=== PATIENT | male | born 1945 | race Caucasian/White ===

== ENCOUNTER 2020-11-09 11:01 | Emergency (ER) | payer MEDICARE, SELFPAY ==
[2020-11-09 11:02] VITALS: BP 132/72; PULSE 92; RESP 14; TEMP 37.1; O2SAT 92; BMI 24.9
--- NOTE | 2020-11-09 11:20 | RAD_ITS ---
STUDY: X-RAY CHEST REASON FOR EXAM: Male, 75 years old. Cough COVID 19 TECHNIQUE: AP upright portable view. COMPARISON: None. FINDINGS: Suspicious interstitial infiltrates in the bottom half of both lungs, left more than right. Calcified granuloma in the right upper lobe. There is no demonstrated pleural abnormality. Normal size heart. Normal mediastinum and lucas. Normal visualized pulmonary arteries. Normal visualized aortic arch and descending thoracic aorta. Normal visualized thoracic spine. Normal visualized ribs, clavicles, and shoulders. There is no demonstrated abnormality of the visualized soft tissue structures of the upper abdomen. RAD/Chest 1 View (Portable) IMPRESSION: Suspicious interstitial pneumonitis in the bottom half of both lungs, left greater than right. They are worrisome for Covid 19 pneumonia. Electronically Signed: Pablo Britt MD at 12:42 EDT , Service support ,
--- NOTE | 2020-11-09 11:21 | EX.ED.DYSGE1 ---
HPI History of Present Illness Chief Complaint: Fever Informant: patient Narrative Narrative: 75-year-old male presents to the emergency department with COVID-19. He states that he was first diagnosed last Tuesday at outside hospital. He believes he may have had symptoms the day before he sought evaluation. He states that all week he has had fever sweats and weakness. He states his breathing is not really been affected by this. He states that he is making very little urine. He states that he has been too weak to eat or drink much. PFSH PFSH Medical History (Updated 11/09/20 @ 11:43 by Shazia Soto) COVID-19 High cholesterol Home Medications atorvastatin 10 mg PO DAILY 11/09/20 [History Last Taken Unknown] azithromycin 250 mg PO DAILY 11/09/20 [History Last Taken Unknown] dexamethasone 6 mg PO DAILY 11/09/20 [History Last Taken Unknown] finasteride 5 mg PO DAILY 11/09/20 [History Last Taken Unknown] lubiprostone 24 mcg PO DAILY 11/09/20 [History Last Taken Unknown] Allergy/AdvReac Type Severity Reaction Status Date / Time Fish Containing Products Allergy PT UNSURE Verified 11/09/20 11:46 OF REACTION fish oil Allergy PT UNSURE Verified 11/09/20 11:46 OF REACTION licorice Allergy PT UNSURE Verified 11/09/20 11:46 OF REACTION peanut Allergy PT UNSURE Verified 11/09/20 11:46 OF REACTION peppermint Allergy PT UNSURE Verified 11/09/20 11:46 OF REACTION strawberry Allergy PT UNSURE Verified 11/09/20 11:46 OF REACTION tetanus and diphtheria Allergy PT UNSURE Verified 11/09/20 11:46 toxoids OF REACTION walnut Allergy PT UNSURE Verified 11/09/20 11:46 OF REACTION wheat Allergy PT UNSURE Verified 11/09/20 11:46 OF REACTION bee stings Allergy PT UNSURE Uncoded 11/09/20 11:46 OF REACTION NUTS Allergy PT UNSURE Uncoded 11/09/20 11:02 OF REACTION Social History (Updated 11/09/20 @ 11:[address] Harshad Saldana DO) household members: spouse Smoking Status: Former smoker ROS ROS ED Constitutional Constitutional ED: Reports fever(s), sweats and other Details: Fatigue ; Denies chills or weight loss Eyes Eyes: Denies change in vision or diplopia ENT ENT ED: Reports sore throat; Denies ear pain or rhinorrhea Cardiovascular Cardiovascular: Denies chest pain, orthopnea, palpitations or racing heartbeat Respiratory/Chest Respiratory/Chest: Reports cough; Denies dyspnea or orthopnea Gastrointestinal Gastrointestinal: Reports nausea; Denies abdominal pain, diarrhea or vomiting Genitourinary Genitourinary ED: Denies dysuria, hematuria or urinary frequency Musculoskeletal Musculoskeletal: Denies arthralgias or myalgias Integumentary Denies abscess or rash Neurologic Neurologic: Reports headache(s); Denies weakness Psychiatric Psychiatric: Denies anxiety, depression, suicidal ideation or suicidal thoughts Endocrine Endocrinology: Denies polydipsia, polyphagia or polyuria Allergic/Immunologic Allergic/Immunologic ED: Denies mouth swelling, tongue swelling or urticaria EXAM Physical Exam Const Vital Signs: 11/09/20 11:02 11/09/20 11:04 Temperature 98.8 F Temperature Source Oral Pulse Rate 92 Respiratory Rate 14 Respiratory Effort Normal Non-Labored Blood Pressure 132/72 H Blood Pressure Mean 92 Pulse Ox 92 Oxygen Delivery Method Room Air Positive well nourished and well developed General Appearance ED: well developed HEENT Reports normocephalic, head/scalp atraumatic and dry mucous membranes Mouth ED: Yes dry mucous membranes Mouth: dry mucous membranes Eyes PERRL and EOMs intact bilaterally Neck no lymphadenopathy, supple and no JVD Resp normal respiratory effort and clear to auscultation bilaterally Cardio regular rate, regular rhythm and no murmurs GI normal to inspection, nondistended, normoactive bowel sounds and non-tender Palpation: soft Back/Spine no CVA tenderness and normal ROM Extremity normal to inspection General Extremety ED: Negative for edema General Extremity: Negative for edema Neuro oriented x3 and CN's II-XII intact bilaterally Sensorium / Orientation: alert Motor Exam: strength 5/5 throughout Psych mental status grossly normal Mood & Affect: Negative for depressed or tearful Skin no rashes or lesions noted and no wounds MDM MDM MDM Narrative Medical decision making narrative: My interpretation of the plain film of the chest x-ray is multifocal pneumonitis/pneumonia consistent with COVID-19. Patient received 2 L of IV fluids. Creatinine noted to be slightly elevated at 1.91. He has been able to eat and drink and eat a little. At this point his vital signs are stable. Patient should be approaching day 10 of his illness. He will be discharged home return if worsening or concerns Lab Data Labs: Laboratory Results - last 24 hr 11/09/20 11/09/20 11:40 11:40 WBC 8.9 RBC 5.46 Hgb 15.4 Hct 47.8 MCV 87.5 MCH 28.2 MCHC 32.2 RDW Std Deviation 41.6 RDW Coeff of Devyn 12.9 Plt Count 180 MPV 10.9 Immature Gran % (Auto) 0.700 Neut % (Auto) 87.0 H Lymph % (Auto) 5.9 L [place] % (Auto) 6.2 Eos % (Auto) 0.1 Baso % (Auto) 0.1 Absolute Neuts (auto) 7.8 H Absolute Lymphs (auto) 0.53 L Nucleated RBC % 0 Sodium 136 Potassium 3.9 Chloride 103 Carbon Dioxide 24.0 Anion Gap 9 BUN 27 H Creatinine 1.91 H Estim Creat Clear Calc 38.93 Est GFR (MDRD) Af Amer 45 L Est GFR (MDRD) Non-Af 37 L BUN/Creatinine Ratio 14.1 Glucose 126 H Calcium 8.4 L Total Bilirubin 0.40 AST 65 H ALT 71 H Alkaline Phosphatase 73 Total Protein 7.7 Albumin 3.4 Globulin 4.3 H Albumin/Globulin Ratio 0.8 L Lipase 155 Radiography Diagnostic Testing: Radiology Impression Chest X-Ray 11/09/20 11:20 IMPRESSION: Suspicious interstitial pneumonitis in the bottom half of both lungs, left greater than right. They are worrisome for Covid 19 pneumonia. Electronically Signed: Pablo Britt MD at 12:42 EDT , Service support , Discharge Plan Triage Chief Complaint: Fever ED Provider: Harshad Saldana Dx/Rx/DC Orders Instructions: Coronavirus Disease 2019 (COVID-19): Caring for Yourself or Others, ED Dehydration (Adult) Prescriptions: No Action atorvastatin 10 mg Tablet 10 mg PO DAILY RF: 0 azithromycin 250 mg tablet 250 mg PO DAILY RF: 0 dexamethasone 6 mg tablet 6 mg PO DAILY RF: 0 finasteride 5 mg tablet 5 mg PO DAILY RF: 0 lubiprostone 24 mcg Capsule 24 mcg PO DAILY RF: 0 Primary Care Provider: Care Physician,No Primary Referrals: Care Physician,No Primary [Primary Care Provider] - Activity Restrictions/Additional Instructions: I have placed a referral to pulmonary medicine and they may be able to offer you monoclonal antibody infusion. You will most likely receive a phone call from them Disposition Disposition: Home, self care
[2020-11-09] MEDS: 0.9% Normal Saline 1,000 ML 1000 ML IV ×2 (11:28→12:00)
[2020-11-09 11:47] LABS: Absolute Lymphocyte Count 0.53 X10^3/uL (0.83-4.51); Absolute Neutrophil Count 7.8 X10^3/uL (2.0-7.7); Basophil# 0.01 X10^3/uL; Basophil% 0.1 % (0-1); Eosinophil# 0.01 X10^3/uL; Eosinophils% 0.1 % (0-5); Hematocrit 47.8 % (40-54); Hemoglobin 15.4 g/dL (13.0-16.5); Lymphocyte # 0.53 X10^3/ul (0.83-4.51); Lymphocyte % 5.9 % (19-41); Mean Corp Hgb Conc 32.2 g/dL (32-36); Mean Corpuscular Hgb 28.2 pg (27.0-32.0); Mean Corpuscular Volume 87.5 fL (80-94); Mean Platelet Vol. 10.9 fl (6.2-12.0); Monocyte# 0.55 X10^3/uL; Monocyte% 6.2 % (0-10); NRBC Flagged by Analyzer 0 % (0-5); Neutrophil # 7.78 X10^3/uL (2.7-7.7); POSITIVE DIFFERENTIAL YES; Platelet Count 180 K/mm3 (150-450); RBC Distribution Width CV 12.9 % (11.6-14.6); RBC Distribution Width SD 41.6 fl (35.1-43.9); Red Blood Count 5.46 M/mm3 (4.6-6.2); White Blood Count 8.9 K/mm3 (4.4-11.0)
[2020-11-09 11:48] LABS: Differential Indicated SCAN CRITERIA MET
[2020-11-09 12:05] LABS: ALB/GLOB Ratio 0.8 RATIO (0.9-2.4); AST(SGOT) 65 U/L (15-37); Alanine Aminotransfer ALT/SGPT 71 U/L (16-61); Albumin, Serum 3.4 g/dL (3.2-5.0); Alkaline Phosphatase 73 U/L (45-117); Anion Gap 9 (5-15); BUN 27 mg/dL (7-18); BUN/Creat Ratio 14.1 RATIO (10-20); Calcium,Total 8.4 mg/dL (8.5-10.1); Chloride 103 mmol/L (98-107); Creatinine, Serum 1.91 mg/dL (0.70-1.30); EST Glomerular Filtration Rate 37 mL/min (>60); Est Glom Filt Rate - Afr Amer 45 mL/min (>60); Estimated Creatinine Clearance 38.93 ml/min; Globulin 4.3 g/dL (2.2-4.2); Glucose 126 mg/dL (74-106); Lipase 155 U/L (73-393); Potassium 3.9 mmol/L (3.5-5.1); Protein, Total 7.7 g/dL (6.4-8.2); Sodium Level 136 mmol/L (136-145)
[2020-11-09 14:01] VITALS: BP 150/77; PULSE 90; RESP 20; TEMP 36.6; O2SAT 96
[2020-11-09 14:04] VITALS: RESP 16
[2020-11-10 13:18] LABS: Pathologist Review Reviewed
== END 2020-11-09 14:05 | disposition home or self-care (01) ==
PROVIDERS: Emergency Provider Emergency Medicine; PCP Internal Medicine
DX: R50.9 Fever, unspecified (principal); E78.00 Pure hypercholesterolemia, unspecified; U07.1 COVID-19; Z79.52 Long term (current) use of systemic steroids; Z87.891 Personal history of nicotine dependence; Z79.899 Other long term (current) drug therapy
CPT/HCPCS: 71045; 80053; 83690; 85025; 99284; J7030; A4216

== ENCOUNTER 2020-11-11 10:50 | Inpatient (IN) | payer MEDICARE, SELFPAY ==
[2020-11-11] VITALS (7 sets, daily range): BP systolic 133–162; BP diastolic 68–86; PULSE 59–81; RESP 17–24; TEMP 36.4–37.4; O2SAT 80–97; BMI 900.8; BMI 24.3
--- NOTE | 2020-11-11 11:04 | EKG12_ITS ---
Test Reason : SOB Blood Pressure : / mmHG Vent. Rate : 073 BPM Atrial Rate : 073 BPM P-R Int : 144 ms QRS Dur : 124 ms QT Int : 390 ms P-R-T Axes : 072 -47 037 degrees QTc Int : 429 ms Normal sinus rhythm Right bundle branch block Left anterior fascicular block Bifascicular block Abnormal ECG Confirmed by LACEY CANALES, LUCIE ([id number]), photographic editor ANURADHA LESTER ([id number]) on 11/13/2020 11:18:51 AM Referred By: /IZABEL Confirmed By:LUCIE RAHMAN MD
--- NOTE | 2020-11-11 11:11 | EDS_ITS ---
HPI History of Present Illness Chief Complaint: Shortness of Breath Narrative Narrative: Patient presenting for evaluation due to complications of coronavirus. Patient's states that he tested positive on the , and had symptoms maybe a couple of days before that although we have documentation that he potentially had symptoms since the seventh of this month. Patient apparently had been seen in an outside facility in this facility for these complications, had work-ups had fluids given and was discharged with continued supportive care. Now he is presenting with increasing issues with tolerating p.o., nausea vomiting, mild diarrhea, and increasing shortness of breath especially with any sort of light exertion. Patient denies that he has any chest pain. No history of lung disease, he is a reformed smoker around 40 years ago. Has been coughing up any blood. Patient was noted to have a pulse ox of 80% in triage. [facility] Medical History (Updated 11/11/20 @ 13:[address] Cristopher Shearer MD) Cancer COVID-19 High cholesterol Home Medications finasteride 5 mg PO DAILY 11/09/20 [History Last Taken Unknown] Allergy/AdvReac Type Severity Reaction Status Date / Time Fish Containing Products Allergy PT UNSURE Verified 11/11/20 10:55 OF REACTION fish oil Allergy PT UNSURE Verified 11/11/20 10:55 OF REACTION licorice Allergy PT UNSURE Verified 11/11/20 10:55 OF REACTION peanut Allergy PT UNSURE Verified 11/11/20 10:55 OF REACTION peppermint Allergy PT UNSURE Verified 11/11/20 10:55 OF REACTION strawberry Allergy PT UNSURE Verified 11/11/20 10:55 OF REACTION tetanus and diphtheria Allergy PT UNSURE Verified 11/11/20 10:55 toxoids OF REACTION walnut Allergy PT UNSURE Verified 11/11/20 10:55 OF REACTION wheat Allergy PT UNSURE Verified 11/11/20 10:55 OF REACTION bee stings Allergy PT UNSURE Uncoded 11/11/20 10:55 OF REACTION NUTS Allergy PT UNSURE Uncoded 11/11/20 10:55 OF REACTION Social History household members: spouse Smoking Status: Former smoker ROS ROS ED Constitutional Constitutional ED: Reports chills and fever(s) ENT ENT ED: Denies rhinorrhea Cardiovascular Cardiovascular: Denies chest pain Respiratory/Chest Respiratory/Chest: Reports cough and dyspnea Gastrointestinal Gastrointestinal: Reports diarrhea, nausea and vomiting; Denies abdominal pain Genitourinary Genitourinary ED: Denies dysuria or hematuria Musculoskeletal Musculoskeletal: Denies back pain Integumentary Denies rash Neurologic Neurologic: Denies paresthesias or weakness Psychiatric Psychiatric: Denies depression Endocrine Endocrinology: Denies fatigue Allergic/Immunologic Allergic/Immunologic ED: Denies urticaria EXAM Physical Exam Const Vital Signs: 11/11/20 10:51 11/11/20 10:55 11/11/20 11:47 Temperature 99.3 F H Temperature Source Temporal Pulse Rate 81 74 Respiratory Rate 17 18 Respiratory Effort Respiratory Depth Respiratory Pattern Blood Pressure 156/86 H 146/77 H Blood Pressure Mean 109 100 Pulse Ox 80 92 92 Oxygen Delivery Method Room Air Nasal Cannula Venturi Mask Oxygen Flow Rate (L/min) 6 4 11/11/20 11:49 Temperature Temperature Source Pulse Rate Respiratory Rate Respiratory Effort Short of Breath Respiratory Depth Normal Respiratory Pattern Normal Blood Pressure Blood Pressure Mean Pulse Ox Oxygen Delivery Method Oxygen Flow Rate (L/min) Positive well nourished and well developed Constitutional Narrative: Minimally dyspneic but otherwise not in physiologic distress General Appearance ED: well developed and other HEENT Reports dry mucous membranes atraumatic Mouth ED: Yes dry mucous membranes Mouth: dry mucous membranes Eyes PERRL and EOMs intact bilaterally Neck no lymphadenopathy and supple Resp Resp Narrative: Mildly tachypneic with rales noted in the bases bilaterally Cardio regular rate and regular rhythm Cardio Narrative: 2+ radial pulses bilaterally symmetric GI non-tender and non-distended Palpation: soft Back/Spine normal to inspection Extremity normal to inspection General Extremety ED: Negative for tenderness Neuro oriented x3 and no sensory deficits noted Sensorium / Orientation: alert Motor Exam: strength 5/5 throughout Psych mental status grossly normal Skin Lesions: no lesions Rashes: no rashes MDM MDM MDM Narrative Medical decision making narrative: Patient presented secondary to worsening symptoms from coronavirus. He required supplemental oxygen. IV was established laboratory studies were obtained. Patient has the typical lymphocyte suppression on his CBC, chemistry shows a chronically elevated creatinine at 1.7 not far off of the patient's baseline no significant electrolyte derangements no evidence of anion gap or acidosis. Patient did have an elevated D-dimer likely secondary to his infection he does not have any chest pain or hemoptysis, his creatinine is higher than I would be comfortable with performing a CT angio initially, so this will be deferred until he is an inpatient. Patient requires admission at this time. Will be admitted under the hospitalist. Lab Data Labs: Laboratory Results - last 24 hr 11/11/20 11/11/20 11/11/20 11:15 11:15 11:15 WBC 8.8 RBC 5.14 Hgb 14.5 Hct 45.8 MCV 89.1 MCH 28.2 MCHC 31.7 L RDW Std Deviation 42.5 RDW Coeff of Devyn 13.0 Plt Count 221 MPV 10.5 Immature Gran % (Auto) 1.600 H Neut % (Auto) 79.0 H Lymph % (Auto) 8.7 L [place] % (Auto) 10.5 H Eos % (Auto) 0.0 Baso % (Auto) 0.2 Absolute Neuts (auto) 6.9 Absolute Lymphs (auto) 0.76 L Nucleated RBC % 0 D-Dimer Quant (PE/DVT) 1.17 H* Sodium 137 Potassium 4.0 Chloride 102 Carbon Dioxide 27.0 Anion Gap 8 BUN 26 H Creatinine 1.75 H Estim Creat Clear Calc 44.51 Est GFR (MDRD) Af Amer 49 L Est GFR (MDRD) Non-Af 41 L BUN/Creatinine Ratio 14.9 Glucose 117 H Lactic Acid Calcium 8.4 L Magnesium 2.2 Total Bilirubin 0.50 AST 49 H ALT 57 Alkaline Phosphatase 70 Total Protein 7.4 Albumin 3.0 L Globulin 4.4 H Albumin/Globulin Ratio 0.7 L Procalcitonin 11/11/20 11/11/20 11:15 11:15 WBC RBC Hgb Hct MCV MCH MCHC RDW Std Deviation RDW Coeff of Devyn Plt Count MPV Immature Gran % (Auto) Neut % (Auto) Lymph % (Auto) [place] % (Auto) Eos % (Auto) Baso % (Auto) Absolute Neuts (auto) Absolute Lymphs (auto) Nucleated RBC % D-Dimer Quant (PE/DVT) Sodium Potassium Chloride Carbon Dioxide Anion Gap BUN Creatinine Estim Creat Clear Calc Est GFR (MDRD) Af Amer Est GFR (MDRD) Non-Af BUN/Creatinine Ratio Glucose Lactic Acid 1.6 Calcium Magnesium Total Bilirubin AST ALT Alkaline Phosphatase Total Protein Albumin Globulin Albumin/Globulin Ratio Procalcitonin 0.81 H Radiography Chest X-Ray - ED: 1 View, Right Infiltrate and Left Infiltrate Diagnostic Testing: Radiology Impression Chest X-Ray 11/11/20 11:55 IMPRESSION: Persistent bilateral pulmonary infiltrates as described. Stable on the right. Improved aeration of the left perihilar infiltrate. Electronically Signed: Jaciel Alonzo MD at 12:13 EDT , Service support , EKG Initial EKG: Attestation: I personally reviewed and interpreted this EKG as follows: (Sinus rhythm of 75, right bundle branch block with left anterior fascicular block are noted. This is somewhat changed from prior EKG that was in 2017. Normal intervals, no evidence of ST segment deviations or abnormal T waves.) Discharge Plan Triage Chief Complaint: Shortness of Breath ED Provider: Cristopher Shearer Dx/Rx/DC Orders Clinical Impression: COVID-19, Hypoxia, D-dimer, elevated, Chronic kidney disease Primary Care Provider: Adriana Boo Disposition Disposition: Acute Care Hospital [facility]
[2020-11-11] MEDS: Acetaminophen 500 MG Tablet 1000 MG PO (11:33)
[2020-11-11] MEDS: Ondansetron 4 MG/2 ML Vial IV ×2 (11:36→21:20)
[2020-11-11 11:49] LABS: Absolute Lymphocyte Count 0.76 X10^3/uL (0.83-4.51); Absolute Neutrophil Count 6.9 X10^3/uL (2.0-7.7); Basophil# 0.02 X10^3/uL; Basophil% 0.2 % (0-1); Hematocrit 45.8 % (40-54); Hemoglobin 14.5 g/dL (13.0-16.5); Lymphocyte # 0.76 X10^3/ul (0.83-4.51); Lymphocyte % 8.7 % (19-41); Mean Corp Hgb Conc 31.7 g/dL (32-36); Mean Corpuscular Hgb 28.2 pg (27.0-32.0); Mean Corpuscular Volume 89.1 fL (80-94); Mean Platelet Vol. 10.5 fl (6.2-12.0); Monocyte# 0.92 X10^3/uL; Monocyte% 10.5 % (0-10); NRBC Flagged by Analyzer 0 % (0-5); Neutrophil # 6.93 X10^3/uL (2.7-7.7); Platelet Count 221 K/mm3 (150-450); RBC Distribution Width SD 42.5 fl (35.1-43.9); Red Blood Count 5.14 M/mm3 (4.6-6.2); White Blood Count 8.8 K/mm3 (4.4-11.0)
[2020-11-11 11:52] LABS: D-Dimer Quantitative (DVT/PE) 1.17 FEU/ug/m (0.27-0.49)
[2020-11-11 11:55] LABS: ALB/GLOB Ratio 0.7 RATIO (0.9-2.4); AST(SGOT) 49 U/L (15-37); Alanine Aminotransfer ALT/SGPT 57 U/L (16-61); Alkaline Phosphatase 70 U/L (45-117); Anion Gap 8 (5-15); BUN 26 mg/dL (7-18); BUN/Creat Ratio 14.9 RATIO (10-20); Calcium,Total 8.4 mg/dL (8.5-10.1); Chloride 102 mmol/L (98-107); Creatinine, Serum 1.75 mg/dL (0.70-1.30); EST Glomerular Filtration Rate 41 mL/min (>60); Est Glom Filt Rate - Afr Amer 49 mL/min (>60); Estimated Creatinine Clearance 44.51 ml/min; Globulin 4.4 g/dL (2.2-4.2); Glucose 117 mg/dL (74-106); Magnesium 2.2 mg/dL (1.6-2.6); Protein, Total 7.4 g/dL (6.4-8.2); Sodium Level 137 mmol/L (136-145)
--- NOTE | 2020-11-11 11:55 | RAD_ITS ---
STUDY: X-RAY CHEST REASON FOR EXAM: Male, 75 years old. Cough TECHNIQUE: Single AP portable view of the chest. COMPARISON: Comparison is made with prior study dated 11/09/2020. FINDINGS: EKG electrodes are seen. Stable right perihilar infiltrate as well as stable right lower lobe infiltrate. Slight improvement in the left perihilar infiltrate. There is no demonstrated pleural abnormality. Normal size heart. Normal mediastinum and lucas. Normal visualized pulmonary arteries. There is atherosclerotic tortuosity of the aortic arch and descending thoracic aorta. Normal visualized thoracic spine. Normal visualized ribs, clavicles, and shoulders. There is no demonstrated abnormality of the visualized soft tissue structures of the upper abdomen. RAD/Chest 1 View (Portable) IMPRESSION: Persistent bilateral pulmonary infiltrates as described. Stable on the right. Improved aeration of the left perihilar infiltrate. Electronically Signed: Jaciel Alonzo MD at 12:13 EDT , Service support ,
[2020-11-11 12:04] LABS: Lactic Acid 1.6 mmol/L (0.4-1.9)
[2020-11-11 12:27] LABS: Procalcitonin 0.81 ng/mL (0.00-0.09)
--- NOTE | 2020-11-11 13:23 | HP.PCM.HOS_ITS ---
HPI - General General Date of Admission: 11/11/20 HPI Narrative TERESA DOWNEY, is a 75 M who presents with shortness of breath. Tested positive for COVID -19 on the 05 of November. Approximately 2 weeks ago he developed diarrhea, nausea, vomiting and has been unable to tolerate PO. He tested for COVID-19 at OSH and had a hospital. He presented to [facility] ED on the with fever and was referred to pulmonary for monoclonal antibody infusion. Since then he has been more short of breath. In ED today was 80% on room air. He is still complaining of vomiting and diarrhea. He received IVF in ED. His also has COVID-19 and is with him in the ED. She denies any complaints. Neither of them have received the COVID-19 vaccination citing that it has not been thoroughly tested enough. [facility] Medical History Cancer COVID-19 High cholesterol Home Medications finasteride 5 mg PO DAILY 11/09/20 [History Last Taken Unknown] Allergy/AdvReac Type Severity Reaction Status Date / Time Fish Containing Products Allergy PT UNSURE Verified 11/11/20 10:55 OF REACTION fish oil Allergy PT UNSURE Verified 11/11/20 10:55 OF REACTION licorice Allergy PT UNSURE Verified 11/11/20 10:55 OF REACTION peanut Allergy PT UNSURE Verified 11/11/20 10:55 OF REACTION peppermint Allergy PT UNSURE Verified 11/11/20 10:55 OF REACTION strawberry Allergy PT UNSURE Verified 11/11/20 10:55 OF REACTION tetanus and diphtheria Allergy PT UNSURE Verified 11/11/20 10:55 toxoids OF REACTION walnut Allergy PT UNSURE Verified 11/11/20 10:55 OF REACTION wheat Allergy PT UNSURE Verified 11/11/20 10:55 OF REACTION bee stings Allergy PT UNSURE Uncoded 11/11/20 10:55 OF REACTION NUTS Allergy PT UNSURE Uncoded 11/11/20 10:55 OF REACTION Social History household members: spouse Smoking Status: Former smoker ROS ROS Narrative All review of systems were negative except as mentioned above in the history of present illness and the other review of systems. Constitutional Constitutional: Reports anorexia, chills and fever(s) Cardiovascular Cardiovascular: Denies chest pain Respiratory/Chest Respiratory/Chest: Reports cough and shortness of breath with exertion Gastrointestinal Gastrointestinal: Reports abdominal pain, diarrhea, nausea and vomiting Vital Signs Vital Signs Vital Signs: 11/11/20 10:51 11/11/20 10:55 11/11/20 11:47 Temperature 37.4 C H Temperature Source Temporal Pulse Rate 81 74 Respiratory Rate 17 18 Respiratory Effort Respiratory Depth Respiratory Pattern Blood Pressure 156/86 H 146/77 H Blood Pressure Mean 109 100 Pulse Ox 80 92 92 Oxygen Delivery Method Room Air Nasal Cannula Venturi Mask Oxygen Flow Rate (L/min) 6 4 11/11/20 11:49 Temperature Temperature Source Pulse Rate Respiratory Rate Respiratory Effort Short of Breath Respiratory Depth Normal Respiratory Pattern Normal Blood Pressure Blood Pressure Mean Pulse Ox Oxygen Delivery Method Oxygen Flow Rate (L/min) Weight Weight: 83.7 kg Body Mass Index (BMI) 900.8 Physical Exam Const alert Constitutional Narrative: Listless. General Appearance: cooperative HEENT normocephalic HEENT Narrative: Edentulous. Mucous membranes moist Eyes Eyes Narrative: No scleral icterus Neck no lymphadenopathy Resp normal respiratory effort Resp Narrative: Bibasilar crackles. Cardio regular rate, regular rhythm, S1 normal heart sound and S2 normal heart sound GI normal to inspection, nondistended, normoactive bowel sounds Neuro Sensorium / Orientation: awake and alert Lab / Micro Data Result Diagrams: 11/11/20 11:15 11/11/20 11:15 Labs: Laboratory Results - last 24 hr 11/11/20 11/11/20 11/11/20 11:15 11:15 11:15 WBC 8.8 RBC 5.14 Hgb 14.5 Hct 45.8 MCV 89.1 MCH 28.2 MCHC 31.7 L RDW Std Deviation 42.5 RDW Coeff of Devyn 13.0 Plt Count 221 MPV 10.5 Immature Gran % (Auto) 1.600 H Neut % (Auto) 79.0 H Lymph % (Auto) 8.7 L [place] % (Auto) 10.5 H Eos % (Auto) 0.0 Baso % (Auto) 0.2 Absolute Neuts (auto) 6.9 Absolute Lymphs (auto) 0.76 L Nucleated RBC % 0 D-Dimer Quant (PE/DVT) 1.17 H* Sodium 137 Potassium 4.0 Chloride 102 Carbon Dioxide 27.0 Anion Gap 8 BUN 26 H Creatinine 1.75 H Estim Creat Clear Calc 44.51 Est GFR (MDRD) Af Amer 49 L Est GFR (MDRD) Non-Af 41 L BUN/Creatinine Ratio 14.9 Glucose 117 H Lactic Acid Calcium 8.4 L Magnesium 2.2 Total Bilirubin 0.50 AST 49 H ALT 57 Alkaline Phosphatase 70 Total Protein 7.4 Albumin 3.0 L Globulin 4.4 H Albumin/Globulin Ratio 0.7 L Procalcitonin 11/11/20 11/11/20 11:15 11:15 WBC RBC Hgb Hct MCV MCH MCHC RDW Std Deviation RDW Coeff of Devyn Plt Count MPV Immature Gran % (Auto) Neut % (Auto) Lymph % (Auto) [place] % (Auto) Eos % (Auto) Baso % (Auto) Absolute Neuts (auto) Absolute Lymphs (auto) Nucleated RBC % D-Dimer Quant (PE/DVT) Sodium Potassium Chloride Carbon Dioxide Anion Gap BUN Creatinine Estim Creat Clear Calc Est GFR (MDRD) Af Amer Est GFR (MDRD) Non-Af BUN/Creatinine Ratio Glucose Lactic Acid 1.6 Calcium Magnesium Total Bilirubin AST ALT Alkaline Phosphatase Total Protein Albumin Globulin Albumin/Globulin Ratio Procalcitonin 0.81 H Radiology Impression Chest X-Ray 11/11/20 11:55 IMPRESSION: Persistent bilateral pulmonary infiltrates as described. Stable on the right. Improved aeration of the left perihilar infiltrate. Electronically Signed: Jaciel Alonzo MD at 12:13 EDT , Service support , Assessment & Plan Assessment/Plan (1) COVID-19: (2) Hypoxia: (3) D-dimer, elevated: (4) Chronic kidney disease: QUALIFIERS: Chronic kidney disease stage: stage 3 (moderate) Chronic kidney disease stage 3 subtype: stage 3b (GFR 30-44) Qualified Code(s): N18.32 - Chronic kidney disease, stage 3b PLAN: 1. Acute COVID-19 pneumonia * Start the patient on dexamethasone 6mg for a total of 10 days. Patient has an elevated D-dimer but given his CKD 3, would not have the patient undergo a CT angiogram at this time. VQ scan would be of low yield. So in the meantime, patient will be anticoagulated with enoxaparin. * Patient unsure if his symptoms began a week ago or 2 weeks ago. Will consult infectious disease for further recommendations and whether remdesivir would be an option for him. * Strongly recommended to he and his to get the vaccine once they are done with quarantine. They initially stated that they were apprehensive because it had not been studied enough in towards the end of the encounter the is asking if he can get the vaccination during this hospitalization. I told him that, at this time, we do not have that capability but that could be done as outpatient in the community. 2. Acute hypoxic respiratory failure * Secondary to above but cannot rule out VTE at this time. * Wean oxygen as tolerated 3. CKD 3B * Complicates care. Avoid nephrotoxins. * Will give 500 cc of fluid. 4. Intractable nausea and vomiting and diarrhea * Start PPI. As needed ondansetron * May be related with COVID-19 * Check C. difficile 5. VTE prophylaxis: Not indicated as patient is currently anticoagulated. 6. CODE STATUS: Discussed with the patient. Patient is full CODE STATUS at this time. Visit Charges Inpatient E&M: 10475 Init Hosp L3
[2020-11-11] MEDS: 0.9% Normal Saline 1,000 ML 150 ML IV (14:17)
[2020-11-11] MEDS: Pantoprazole Sodium 40 MG Tablet PO (14:20)
[2020-11-11] MEDS: dexAMETHasone 4 MG Tablet 6 MG PO (14:20)
[2020-11-11] MEDS: Enoxaparin 80 MG/0.8 ML Syringe SC (21:17)
[2020-11-11] MEDS: 0.9% Saline Lock 10 ML Syringe IV (21:20)
--- NOTE | 2020-11-11 23:00 | NURSING ---
Pt visualized in room camera, at bedside using urinal;sits and begins to have a coughing fit. P.ox. noted to be dropping to low 80s and then to 78%. Pt placed on VM and progressed from lower flow, up to 40%VM and 8L before pulse ox rises above 90%. Pt denies sx of hypoxia besides how this virus has me feeling already.
[2020-11-12 01:30] VITALS: BP 150/86; PULSE 73; RESP 20; TEMP 36.6; O2SAT 95
[2020-11-12 06:19] LABS: Absolute Neutrophil Count 11.6 X10^3/uL (2.0-7.7); Basophil# 0.02 X10^3/uL; Basophil% 0.2 % (0-1); Hematocrit 41.6 % (40-54); Hemoglobin 13.3 g/dL (13.0-16.5); Lymphocyte % 3.8 % (19-41); Mean Corpuscular Hgb 28.4 pg (27.0-32.0); Mean Corpuscular Volume 88.9 fL (80-94); Mean Platelet Vol. 10.1 fl (6.2-12.0); Monocyte# 1.01 X10^3/uL; Monocyte% 7.6 % (0-10); NRBC Flagged by Analyzer 0 % (0-5); Neutrophil # 11.55 X10^3/uL (2.7-7.7); Neutrophil % 87.4 % (47-70); POSITIVE DIFFERENTIAL YES; Platelet Count 220 K/mm3 (150-450); RBC Distribution Width CV 13.1 % (11.6-14.6); RBC Distribution Width SD 42.6 fl (35.1-43.9); Red Blood Count 4.68 M/mm3 (4.6-6.2); White Blood Count 13.2 K/mm3 (4.4-11.0)
[2020-11-12 06:21] LABS: Differential Indicated SCAN CRITERIA MET
[2020-11-12 06:32] LABS: Anion Gap 8 (5-15); BUN 27 mg/dL (7-18); BUN/Creat Ratio 18.5 RATIO (10-20); Calcium,Total 7.9 mg/dL (8.5-10.1); Chloride 105 mmol/L (98-107); Creatinine, Serum 1.46 mg/dL (0.70-1.30); EST Glomerular Filtration Rate 50 mL/min (>60); Est Glom Filt Rate - Afr Amer 61 mL/min (>60); Estimated Creatinine Clearance 50.93 ml/min; Glucose 125 mg/dL (74-106); Magnesium 2.1 mg/dL (1.6-2.6); Phosphorus 2.9 mg/dL (2.5-4.9); Potassium 4.4 mmol/L (3.5-5.1); Sodium Level 138 mmol/L (136-145)
[2020-11-12 06:42] LABS: Differential Comment SCANNED
[2020-11-12 06:52] VITALS: O2SAT 90
--- NOTE | 2020-11-12 07:07 | EX.PCM.CONCC ---
Assessment & Plan Assessment/Plan (1) COVID-19: (2) Hypoxia: (3) Chronic kidney disease: QUALIFIERS: Chronic kidney disease stage: stage 3 (moderate) Chronic kidney disease stage 3 subtype: stage 3b (GFR 30-44) Qualified Code(s): N18.32 - Chronic kidney disease, stage 3b PLAN: RECOMMENDATIONS: 1. Continue Decadron. Not a candidate for remdesivir given delayed presentation 2. Hold on aggressive fluid resuscitation. KVO IV fluids. 3. Possible transition to Airvo versus BiPAP later today 4. Encourage incentive spirometer 5. Agree with empiric anticoagulation IMPRESSIONS: 1. Acute hypoxic respiratory insufficiency secondary to COVID-19 pneumonia Patient with bilateral infiltrates on chest x-ray. Unclear if patient has an element of COPD given previous smoking history. Patient appears to be on approximately day 14 of symptoms, so remdesivir would not be indicated. Agree with Decadron. Patient is open to intubation, but is not thrilled with BiPAP. Patient may be at peak symptoms, but if patient continues to worsen, transition to BiPAP versus Airvo may be necessary. We will need to monitor for complications of Decadron therapy. 2. CKD stage IIIb Patient's creatinine appears to be at baseline. We will continue to monitor closely. Would avoid aggressive fluid resuscitation as this will likely not affect his renal function, but could increase his risk of requiring mechanical ventilation. 3. Intractable nausea, vomiting and diarrhea Clinical suspicion that this is secondary to COVID-19. C. difficile has been negative. PPI is reasonable, especially given patient's Decadron requirements. 4. Advanced age/avoidance of primary care/history of smoker/BPH Complicates care, management, recovery and prognosis. We will discuss about discharge planning and the importance of primary care follow-up and COVID-19 vaccination. HPI Consult Data Date of Consult: 11/12/20 HPI Narrative HPI Narrative: TERESA DOWNEY is a 75-year-old male, with past medical history listed below, who presented to [facility] on 11/11/2020 secondary to progressive weakness, fever, chills and headache. Patient had also noted that he been making very little urine, but states that he has been too weak to eat or drink since he was diagnosed with COVID-19 approximately 10 days prior to presentation. Patient estimates that he has had signs of an acute illness for almost 2 weeks. Initially on presentation to the ER on 11/09/2020, patient was afebrile at 98.8 ?F and saturating well at 92% on room air. Laboratory data was relatively unremarkable except for an elevated creatinine of 1.9, BUN of 27 and slightly elevated AST and ALT. Lipase and CBC were within normal limits. Patient was given 2 L of IV fluids and sent home. Patient presented back to the emergency room on 11/11/2020 secondary to progressive shortness of breath and inability to tolerate p.o. Patient reportedly was a smoker in the past, but quit sometime ago. Patient has never seen a dice table person, but was noted to be saturating 80% in triage on room air. Patient was noted to be 99.3 ?F, normotensive, but required 6 L nasal cannula to maintain saturations. Laboratory data showed no significant leukocytosis, but elevated D-dimer at 1.17, creatinine of 1.75 and slightly improved AST and ALT. Lactate was normal at 1.6 and procalcitonin was slightly elevated at 0.81. Chest x-ray at this time showed bilateral infiltrates and EKG showed a bifascicular block. Patient was admitted to the hospital for further evaluation. Since being in the intensive care unit, reports he has had improvement in his shortness of breath as long as I am not moving but continued headache and nausea. Patient's oxygen status has worsened and is now requiring Ventimask to maintain saturations. Patient states he is willing to be intubated if necessary, but is very resistant to trying BiPAP therapy. Patient denies any current chest pain. Patient is a relatively poor historian and states that he tends to avoid doctors if possible. Patient states that he has been swishing his mouth with diluted bleach and thought this would protect him from COVID-19. Patient's girlfriend is currently Covid positive, but much less symptomatic. Patient reportedly has not received a monoclonal antibody or vaccinations previously. Review of systems otherwise negative from a constitutional, HEENT, respiratory, cardiovascular, GI, genitourinary, musculoskeletal, skin, neurologic, psychiatric and hematologic system unless stated above. [facility] Medical History Cancer COVID-19 High cholesterol Home Medications finasteride 5 mg PO DAILY 11/09/20 [History Last Taken 11/10/20] Allergy/AdvReac Type Severity Reaction Status Date / Time Fish Containing Products Allergy PT UNSURE Verified 11/11/20 10:55 OF REACTION fish oil Allergy PT UNSURE Verified 11/11/20 10:55 OF REACTION licorice Allergy PT UNSURE Verified 11/11/20 10:55 OF REACTION peanut Allergy PT UNSURE Verified 11/11/20 10:55 OF REACTION peppermint Allergy PT UNSURE Verified 11/11/20 10:55 OF REACTION strawberry Allergy PT UNSURE Verified 11/11/20 10:55 OF REACTION tetanus and diphtheria Allergy PT UNSURE Verified 11/11/20 10:55 toxoids OF REACTION walnut Allergy PT UNSURE Verified 11/11/20 10:55 OF REACTION wheat Allergy PT UNSURE Verified 11/11/20 10:55 OF REACTION bee stings Allergy PT UNSURE Uncoded 11/11/20 10:55 OF REACTION NUTS Allergy PT UNSURE Uncoded 11/11/20 10:55 OF REACTION Social History household members: spouse Smoking Status: Former smoker ROS ROS Narrative See HPI Physical Exam Const oriented x3 and no apparent distress General Appearance: frail; Negative for in distress HEENT normocephalic and head/scalp atraumatic; Negative for moist oral mucous membranes Eyes PERRL, EOMs intact bilaterally and conjunctivae normal Neck full ROM Lymph Lymphatic: no lymphadenopathy noted Resp Effort and Inspection: able to speak in complete sentences, symmetric chest movement and tachypneic; Negative for actively coughing or uses accessory muscles Auscultation: diminished lung sounds diffuse; Negative for rales, rhonchi or wheezes Percussion: percussion normal Cardio S1 normal heart sound, S2 normal heart sound, no murmurs, no rub, no gallops and no JVD Rate: tachycardic Rhythm: abnormal rhythm irregularly irregular GI normal to inspection, nondistended, normoactive bowel sounds Narrative: Mild CVA tenderness noted Extremity no clubbing, cyanosis or edema Skin no rashes or lesions noted Neuro oriented x3 and CN's II-XII intact bilaterally Psych cooperative and affect normal Lab / Micro Data Result Diagrams: 11/12/20 06:10 11/12/20 06:10 Labs: Laboratory Results - last 24 hr 05/11/11/20 11/11/20 11:15 11:15 11:15 WBC 8.8 RBC 5.14 Hgb 14.5 Hct 45.8 MCV 89.1 MCH 28.2 MCHC 31.7 L RDW Std Deviation 42.5 RDW Coeff of Devyn 13.0 Plt Count 221 MPV 10.5 Immature Gran % (Auto) 1.600 H Neut % (Auto) 79.0 H Lymph % (Auto) 8.7 L [place] % (Auto) 10.5 H Eos % (Auto) 0.0 Baso % (Auto) 0.2 Absolute Neuts (auto) 6.9 Absolute Lymphs (auto) 0.76 L Nucleated RBC % 0 Differential Comment D-Dimer Quant (PE/DVT) 1.17 H* Sodium 137 Potassium 4.0 Chloride 102 Carbon Dioxide 27.0 Anion Gap 8 BUN 26 H Creatinine 1.75 H Estim Creat Clear Calc 44.51 Est GFR (MDRD) Af Amer 49 L Est GFR (MDRD) Non-Af 41 L BUN/Creatinine Ratio 14.9 Glucose 117 H Lactic Acid Calcium 8.4 L Phosphorus Magnesium 2.2 Total Bilirubin 0.50 AST 49 H ALT 57 Alkaline Phosphatase 70 Total Protein 7.4 Albumin 3.0 L Globulin 4.4 H Albumin/Globulin Ratio 0.7 L Procalcitonin 11/11/20 11/11/20 11/12/20 11:15 11:15 06:10 WBC 13.2 H RBC 4.68 Hgb 13.3 Hct 41.6 MCV 88.9 MCH 28.4 MCHC 32.0 RDW Std Deviation 42.6 RDW Coeff of Devyn 13.1 Plt Count 220 MPV 10.1 Immature Gran % (Auto) 1.000 H Neut % (Auto) 87.4 H Lymph % (Auto) 3.8 L [place] % (Auto) 7.6 Eos % (Auto) 0.0 Baso % (Auto) 0.2 Absolute Neuts (auto) 11.6 H Absolute Lymphs (auto) 0.50 L Nucleated RBC % 0 Differential Comment SCANNED D-Dimer Quant (PE/DVT) Sodium Potassium Chloride Carbon Dioxide Anion Gap BUN Creatinine Estim Creat Clear Calc Est GFR (MDRD) Af Amer Est GFR (MDRD) Non-Af BUN/Creatinine Ratio Glucose Lactic Acid 1.6 Calcium Phosphorus Magnesium Total Bilirubin AST ALT Alkaline Phosphatase Total Protein Albumin Globulin Albumin/Globulin Ratio Procalcitonin 0.81 H 11/12/20 06:10 WBC RBC Hgb Hct MCV MCH MCHC RDW Std Deviation RDW Coeff of Devyn Plt Count MPV Immature Gran % (Auto) Neut % (Auto) Lymph % (Auto) [place] % (Auto) Eos % (Auto) Baso % (Auto) Absolute Neuts (auto) Absolute Lymphs (auto) Nucleated RBC % Differential Comment D-Dimer Quant (PE/DVT) Sodium 138 Potassium 4.4 Chloride 105 Carbon Dioxide 25.0 Anion Gap 8 BUN 27 H Creatinine 1.46 H Estim Creat Clear Calc 50.93 Est GFR (MDRD) Af Amer 61 Est GFR (MDRD) Non-Af 50 L BUN/Creatinine Ratio 18.5 Glucose 125 H Lactic Acid Calcium 7.9 L Phosphorus 2.9 Magnesium 2.1 Total Bilirubin AST ALT Alkaline Phosphatase Total Protein Albumin Globulin Albumin/Globulin Ratio Procalcitonin Radiology Impression Chest X-Ray 11/11/20 11:55 IMPRESSION: Persistent bilateral pulmonary infiltrates as described. Stable on the right. Improved aeration of the left perihilar infiltrate. Electronically Signed: Jaciel Alonzo MD at 12:13 EDT , Service support ,
[2020-11-12 07:30] VITALS: BP 164/73; PULSE 84; RESP 18; TEMP 36.8; O2SAT 94
[2020-11-12] MEDS: dexAMETHasone 4 MG Tablet 6 MG PO (10:32)
[2020-11-12] MEDS: Pantoprazole Sodium 40 MG Tablet PO (10:34)
[2020-11-12] MEDS: Finasteride 5 MG Tablet PO (10:34)
[2020-11-12] MEDS: Enoxaparin 80 MG/0.8 ML Syringe SC ×2 (10:34→21:00)
--- NOTE | 2020-11-12 11:11 | CASEMGMT ---
[place] Assessment: TC to pt room due to COVID 19 for initial transition planning/care coordination assessment. [place] introduced self and role at [facility], pt voices understanding and consents to assessment. Pt is A/O x4 and answers all questions appropriately at this time. Care providers, pharmacy, and demographics verified/updated. Admitting Dx: Covid, hypoxia PCP: Ema Specialists: Pt denies having specialists. States this is the first time he has been sick. Preferred Pharmacy: [facility] in [place] Insurance: [facility] Prescription Benefit: yes LW/HPOA: Pt denies having LW/DPOA. LNOK: Kathy Garces, significant other Living Arrangements: Pt lives with significant other in a single story house with 5-6 steps to enter with a rail. Pt reports he is independent in ADL's and denies concerns at home. Transportation: Pt reports he drives self and denies concerns with transportation. DME/HHC/SNF: Pt has grab bars in the bathroom and denies any further DME. States he gave it all away. Pt denies any previous HHC or SNF stays. Pt states no concerns with going home at time of dc. He states his significant other also has Covid. He reports they are able to quarantine and has friends who are able to bring them groceries. Discussed possibility of pt having to go home on O2. Pt states he is familiar with [employer] and would like to use them. Pt denied need for list of local in network providers to be given. Pt states no further concerns/needs. CM to follow for O2 needs. Advised pt to ask CM if any further question/concerns/needs arise, voices understanding. Spoke with pt nurse Mathew who reports there is not a therapy need for pt at this time. Pt Goal: Home Plan: Home with significant other and friend support.
--- NOTE | 2020-11-12 11:14 | PN.HOSP_ITS ---
Subjective Subjective Trouble using nasal canula due to deviated septum. Objective Data Objective Data Vital Signs: Vital Signs Temp Pulse Resp BP Pulse Ox 36.8 C 84 18 164/73 H 94 11/12/20 07:30 11/12/20 07:30 11/12/20 07:30 11/12/20 07:30 11/12/20 07:30 Oxygen Flow Rate (L/min) 6 Oxygen Delivery Method Nasal Cannula Weight: 83.7 kg Body Mass Index (BMI) 24.3 Intake & Output: Intake and Output for Last 24 Hours 11/10/20 11/11/20 11/12/20 23:59 23:59 23:59 Intake Total 1700 / 1700 150 / 150 Output Total 470 / 470 275 / 275 Balance 1230 / 1230 -125 / -125 Lab / Micro Data Attestation: I reviewed the patient's lab results. Result Diagrams: 11/12/20 06:10 11/12/20 06:10 Labs: Laboratory Results - last 24 hr 11/11/20 11/11/20 11/11/20 11:15 11:15 11:15 WBC 8.8 RBC 5.14 Hgb 14.5 Hct 45.8 MCV 89.1 MCH 28.2 MCHC 31.7 L RDW Std Deviation 42.5 RDW Coeff of Devyn 13.0 Plt Count 221 MPV 10.5 Immature Gran % (Auto) 1.600 H Neut % (Auto) 79.0 H Lymph % (Auto) 8.7 L [place] % (Auto) 10.5 H Eos % (Auto) 0.0 Baso % (Auto) 0.2 Absolute Neuts (auto) 6.9 Absolute Lymphs (auto) 0.76 L Nucleated RBC % 0 Differential Comment D-Dimer Quant (PE/DVT) 1.17 H* Sodium 137 Potassium 4.0 Chloride 102 Carbon Dioxide 27.0 Anion Gap 8 BUN 26 H Creatinine 1.75 H Estim Creat Clear Calc 44.51 Est GFR (MDRD) Af Amer 49 L Est GFR (MDRD) Non-Af 41 L BUN/Creatinine Ratio 14.9 Glucose 117 H Lactic Acid Calcium 8.4 L Phosphorus Magnesium 2.2 Total Bilirubin 0.50 AST 49 H ALT 57 Alkaline Phosphatase 70 Total Protein 7.4 Albumin 3.0 L Globulin 4.4 H Albumin/Globulin Ratio 0.7 L Procalcitonin 11/11/20 11/11/20 11/12/20 11:15 11:15 06:10 WBC 13.2 H RBC 4.68 Hgb 13.3 Hct 41.6 MCV 88.9 MCH 28.4 MCHC 32.0 RDW Std Deviation 42.6 RDW Coeff of Devyn 13.1 Plt Count 220 MPV 10.1 Immature Gran % (Auto) 1.000 H Neut % (Auto) 87.4 H Lymph % (Auto) 3.8 L [place] % (Auto) 7.6 Eos % (Auto) 0.0 Baso % (Auto) 0.2 Absolute Neuts (auto) 11.6 H Absolute Lymphs (auto) 0.50 L Nucleated RBC % 0 Differential Comment SCANNED D-Dimer Quant (PE/DVT) Sodium Potassium Chloride Carbon Dioxide Anion Gap BUN Creatinine Estim Creat Clear Calc Est GFR (MDRD) Af Amer Est GFR (MDRD) Non-Af BUN/Creatinine Ratio Glucose Lactic Acid 1.6 Calcium Phosphorus Magnesium Total Bilirubin AST ALT Alkaline Phosphatase Total Protein Albumin Globulin Albumin/Globulin Ratio Procalcitonin 0.81 H 11/12/20 06:10 WBC RBC Hgb Hct MCV MCH MCHC RDW Std Deviation RDW Coeff of Devyn Plt Count MPV Immature Gran % (Auto) Neut % (Auto) Lymph % (Auto) [place] % (Auto) Eos % (Auto) Baso % (Auto) Absolute Neuts (auto) Absolute Lymphs (auto) Nucleated RBC % Differential Comment D-Dimer Quant (PE/DVT) Sodium 138 Potassium 4.4 Chloride 105 Carbon Dioxide 25.0 Anion Gap 8 BUN 27 H Creatinine 1.46 H Estim Creat Clear Calc 50.93 Est GFR (MDRD) Af Amer 61 Est GFR (MDRD) Non-Af 50 L BUN/Creatinine Ratio 18.5 Glucose 125 H Lactic Acid Calcium 7.9 L Phosphorus 2.9 Magnesium 2.1 Total Bilirubin AST ALT Alkaline Phosphatase Total Protein Albumin Globulin Albumin/Globulin Ratio Procalcitonin Radiography Diagnostic Testing: Radiology Impression Chest X-Ray 11/11/20 11:55 IMPRESSION: Persistent bilateral pulmonary infiltrates as described. Stable on the right. Improved aeration of the left perihilar infiltrate. Electronically Signed: Jaciel Alonzo MD at 12:13 EDT , Service support , Physical Exam Const alert Resp normal respiratory effort, no use of accessory muscles and clear to auscultation bilaterally Cardio regular rate, regular rhythm, S1 normal heart sound and S2 normal heart sound GI normal to inspection, nondistended, normoactive bowel sounds, non-tender and non-distended Extremity normal to inspection Assessment & Plan Assessment/Plan (1) COVID-19: (2) Hypoxia: (3) D-dimer, elevated: (4) Chronic kidney disease: QUALIFIERS: Chronic kidney disease stage: stage 3 (moderate) Chronic kidney disease stage 3 subtype: stage 3b (GFR 30-44) Qualified Code(s): N18.32 - Chronic kidney disease, stage 3b PLAN: 1. Acute COVID-19 pneumonia * Start the patient on dexamethasone 6mg for a total of 10 days. Patient has an elevated D-dimer but given his CKD 3, would not have the patient undergo a CT angiogram at this time. VQ scan would be of low yield. So in the meantime, patient will be anticoagulated with enoxaparin. * Patient unsure if his symptoms began a week ago or 2 weeks ago. Will consult infectious disease for further recommendations and whether remdesivir would be an option for him. * Strongly recommended to he and his to get the vaccine once they are done with quarantine. They initially stated that they were apprehensive because it had not been studied enough in towards the end of the encounter the is asking if he can get the vaccination during this hospitalization. I told him that, at this time, we do not have that capability but that could be done as outpatient in the community. * Pulm consulted by INTERMEDIATE DESIGNER for increased oxygen demands. 2. Acute hypoxic respiratory failure * Secondary to above but cannot rule out VTE at this time. * Wean oxygen as tolerated 3. CKD 3B * Complicates care. Avoid nephrotoxins. * Received 500 cc of fluid on the floor. 1 liter in ED. * Creatinine slightly better today * No additional IVF given COVID 19. 4. Intractable nausea and vomiting and diarrhea * Improved * Start PPI. As needed ondansetron * May be related with COVID-19 * Check C. difficile, H. pylori breath test given his history of H. pylori 5. VTE prophylaxis: Not indicated as patient is currently anticoagulated. 6. CODE STATUS: Discussed with the patient. Patient is full CODE STATUS at this time. Visit Charges Inpatient E&M: 16279 Subs Hosp L2
[2020-11-12 14:00] VITALS: BP 128/74; PULSE 93; RESP 18; TEMP 36.3; O2SAT 94
--- NOTE | 2020-11-12 14:12 | NT.THERAPY_ITS ---
Medical Nutrition Therapy - History Current diet/nutrition support order:: regular - Anthropometric Measurements Height:: 6 ft 1 in Weight:: 83.7 kg - Relevant Labs Relevant Labs:: WBC 13.2 K/mm3 (4.4-11.0) H 11/12/20 06:10 MCHC 31.7 g/dL (32-36) L 11/11/20 11:15 Immature Gran % (Auto) 1.000 % (0.0-0.9) H 11/12/20 06:10 Neut % (Auto) 87.4 % (47-70) H 11/12/20 06:10 Lymph % (Auto) 3.8 % (19-41) L 11/12/20 06:10 [place] % (Auto) 10.5 % (0-10) H 11/11/20 11:15 Absolute Neuts (auto) 11.6 X10^3/uL (2.0-7.7) H 11/12/20 06:10 Absolute Lymphs (auto) 0.50 X10^3/uL (0.83-4.51) L 11/12/20 06:10 D-Dimer Quant (PE/DVT) 1.17 FEU/ug/m (0.27-0.49) H* 11/11/20 11:15 BUN 27 mg/dL (7-18) H 11/12/20 06:10 Creatinine 1.46 mg/dL (0.70-1.30) H 11/12/20 06:10 Est GFR (MDRD) Af Amer 49 mL/min (>60) L 11/11/20 11:15 Est GFR (MDRD) Non-Af 50 mL/min (>60) L 11/12/20 06:10 Glucose 125 mg/dL (74-106) H 11/12/20 06:10 Calcium 7.9 mg/dL (8.5-10.1) L 11/12/20 06:10 AST 49 U/L (15-37) H 11/11/20 11:15 Albumin 3.0 g/dL (3.2-5.0) L 11/11/20 11:15 Globulin 4.4 g/dL (2.2-4.2) H 11/11/20 11:15 Albumin/Globulin Ratio 0.7 RATIO (0.9-2.4) L 11/11/20 11:15 Procalcitonin 0.81 ng/mL (0.00-0.09) H 11/11/20 11:15 - Assessment Food and Nutrient Intake: Pt reports poor PO intake for 2 weeks d/t onset of acute illness. Pt states since admission, he has tolerated applesauce and milk but is not up to eating other foods at this time. Pt says UBW 194# and CBW 184.5#-9.5#/5% wt loss x 2 weeks is significant for acute malnutrition. - Nutrition Diagnosis: Clinical Problem Acute Disease or Injury Related Malnutrition Clinical Problem - Etiology: severe, acute malnutrition r/t inadequate energy intake w/ increased nutrient needs d/t acute illness Clinical Problem - Signs/Symptoms: as evidenced by estimated PO intake meeting <50% of nutritional needs x 2 weeks, unintentional wt loss of 9.5#/5% x 2 weeks - Protein Calorie Malnutrition Evidence of Malnutrition Exists: Yes Severe Protein Calorie Malnutrition:: Acute Illness/Injury - Nutrition Intervention Nutrition Prescription: 5629-2324 calories/day (1.3xRMR). 73-83 g protein/day (1g/kg). 2075 mL fluid/day (25mL/kg) - Food / Nutrient Delivery Interventions Summary of nutrition intervention:: Nutrition education provided Nutrition support ordered as / adjusted to:: continue regular diet; ensure enlive w/ meals if pt agreeable- refusing at this time. Nutrition education provided?: Yes Coordination of Nutrition Care: Refusing Ensure-aware available from nursing staff if agreeable at a later time. - MNT Monitoring Active Nutrition Patient: Yes Nutrition Status: Requires Follow Up 3-5 Days
--- NOTE | 2020-11-12 15:28 | CON.PCM.ID_ITS ---
Assessment & Plan Assessment/Plan (1) COVID-19: PLAN: Sx started about 2 weeks ago. Not vaccinated. Plan on one more week of quarantine, recommend he get vaccinated once quarantine is over. He is hesitant because he has heard of people who have been sick for up to 3-4 days after the vaccine. On dex for 10 day course. Will follow, thank you (2) Hypoxia: (3) Chronic kidney disease: QUALIFIERS: Chronic kidney disease stage: stage 3 (moderate) Chronic kidney disease stage 3 subtype: stage 3b (GFR 30-44) Qualified Code(s): N18.32 - Chronic kidney disease, stage 3b HPI Consult Data Date of Consult: 11/12/20 HPI Narrative HPI Narrative: TERESA DOWNEY, is a 75 M who presented with about 2 weeks of progressive sx. Started with headache, fever, aches, change in taste and smell, and diarrhea. Had progressive cough and dyspnea. also sick, both tested (+) for covid, neither have been vaccinated. Overall symptoms improved, but still with dyspnea, some cough. Admitted yesterday, started on dex. Full ROS performed and neg except as noted above. [facility] Medical History Cancer COVID-19 High cholesterol Home Medications finasteride 5 mg PO DAILY 11/09/20 [History Last Taken 11/10/20] Allergy/AdvReac Type Severity Reaction Status Date / Time Fish Containing Products Allergy PT UNSURE Verified 11/11/20 10:55 OF REACTION fish oil Allergy PT UNSURE Verified 11/11/20 10:55 OF REACTION licorice Allergy PT UNSURE Verified 11/11/20 10:55 OF REACTION peanut Allergy PT UNSURE Verified 11/11/20 10:55 OF REACTION peppermint Allergy PT UNSURE Verified 11/11/20 10:55 OF REACTION strawberry Allergy PT UNSURE Verified 11/11/20 10:55 OF REACTION tetanus and diphtheria Allergy PT UNSURE Verified 11/11/20 10:55 toxoids OF REACTION walnut Allergy PT UNSURE Verified 11/11/20 10:55 OF REACTION wheat Allergy PT UNSURE Verified 11/11/20 10:55 OF REACTION bee stings Allergy PT UNSURE Uncoded 11/11/20 10:55 OF REACTION NUTS Allergy PT UNSURE Uncoded 11/11/20 10:55 OF REACTION Social History household members: spouse Smoking Status: Former smoker Physical Exam Const alert and no apparent distress General Appearance: cooperative HEENT normocephalic and head/scalp atraumatic Eyes PERRL and EOMs intact bilaterally Neck supple and No nodes Resp Auscultation: diminished lung sounds Cardio regular rate and regular rhythm GI normal to inspection, nondistended, normoactive bowel sounds Extremity no clubbing, cyanosis or edema Skin no rashes or lesions noted Neuro CN's II-XII intact bilaterally Lab / Micro Data Result Diagrams: 11/12/20 06:10 11/12/20 06:10 Labs: Laboratory Results - last 24 hr 11/12/20 11/12/20 06:10 06:10 WBC 13.2 H RBC 4.68 Hgb 13.3 Hct 41.6 MCV 88.9 MCH 28.4 MCHC 32.0 RDW Std Deviation 42.6 RDW Coeff of Devyn 13.1 Plt Count 220 MPV 10.1 Immature Gran % (Auto) 1.000 H Neut % (Auto) 87.4 H Lymph % (Auto) 3.8 L [place] % (Auto) 7.6 Eos % (Auto) 0.0 Baso % (Auto) 0.2 Absolute Neuts (auto) 11.6 H Absolute Lymphs (auto) 0.50 L Nucleated RBC % 0 Differential Comment SCANNED Sodium 138 Potassium 4.4 Chloride 105 Carbon Dioxide 25.0 Anion Gap 8 BUN 27 H Creatinine 1.46 H Estim Creat Clear Calc 50.93 Est GFR (MDRD) Af Amer 61 Est GFR (MDRD) Non-Af 50 L BUN/Creatinine Ratio 18.5 Glucose 125 H Calcium 7.9 L Phosphorus 2.9 Magnesium 2.1
[2020-11-12 21:00] VITALS: BP 148/79; PULSE 84; RESP 18; TEMP 37; O2SAT 92
[2020-11-13] VITALS (7 sets, daily range): BP systolic 134–151; BP diastolic 68–83; PULSE 63–69; RESP 16–20; TEMP 36.4–36.8; O2SAT 85–94
[2020-11-13] MEDS: guaiFENesin 10 ML UDC (200MG/10ML) PO (00:30)
[2020-11-13 05:06] LABS: Absolute Lymphocyte Count 0.65 X10^3/uL (0.83-4.51); Absolute Neutrophil Count 13.8 X10^3/uL (2.0-7.7); Basophil# 0.04 X10^3/uL; Basophil% 0.3 % (0-1); Eosinophil# 0.06 X10^3/uL; Eosinophils% 0.4 % (0-5); Hematocrit 39.2 % (40-54); Hemoglobin 12.7 g/dL (13.0-16.5); Lymphocyte # 0.65 X10^3/ul (0.83-4.51); Lymphocyte % 4.1 % (19-41); Mean Corp Hgb Conc 32.4 g/dL (32-36); Mean Corpuscular Hgb 28.4 pg (27.0-32.0); Mean Corpuscular Volume 87.7 fL (80-94); Mean Platelet Vol. 10.4 fl (6.2-12.0); Monocyte# 1.07 X10^3/uL; Monocyte% 6.7 % (0-10); NRBC Flagged by Analyzer 0 % (0-5); Neutrophil % 86.7 % (47-70); Platelet Count 228 K/mm3 (150-450); RBC Distribution Width CV 12.9 % (11.6-14.6); RBC Distribution Width SD 41.4 fl (35.1-43.9); Red Blood Count 4.47 M/mm3 (4.6-6.2); White Blood Count 15.9 K/mm3 (4.4-11.0)
[2020-11-13 05:19] LABS: Anion Gap 7 (5-15); BUN 34 mg/dL (7-18); BUN/Creat Ratio 23.6 RATIO (10-20); Calcium,Total 8.1 mg/dL (8.5-10.1); Chloride 105 mmol/L (98-107); Creatinine, Serum 1.44 mg/dL (0.70-1.30); EST Glomerular Filtration Rate 51 mL/min (>60); Est Glom Filt Rate - Afr Amer 62 mL/min (>60); Estimated Creatinine Clearance 51.63 ml/min; Glucose 148 mg/dL (74-106); Potassium 4.4 mmol/L (3.5-5.1); Sodium Level 137 mmol/L (136-145)
--- NOTE | 2020-11-13 08:20 | PN.CC_ITS ---
Assessment & Plan Assessment/Plan (1) COVID-19: (2) Hypoxia: (3) Chronic kidney disease: QUALIFIERS: Chronic kidney disease stage: stage 3 (moderate) Chronic kidney disease stage 3 subtype: stage 3b (GFR 30-44) Qualified Code(s): N18.32 - Chronic kidney disease, stage 3b PLAN: RECOMMENDATIONS: 1. Continue Decadron. Not a candidate for remdesivir given delayed presentation 2. Hold on aggressive fluid resuscitation. KVO IV fluids. 3. Wean oxygen as tolerated 4. Encourage incentive spirometer 5. Agree with empiric anticoagulation IMPRESSIONS: 1. Acute hypoxic respiratory insufficiency secondary to COVID-19 pneumonia Patient with bilateral infiltrates on chest x-ray. Unclear if patient has an element of COPD given previous smoking history. Patient appears to be on approximately day 14 of symptoms, so remdesivir would not be indicated. Agree with Decadron. Patient is open to intubation, but is not thrilled with BiPAP. Patient slightly improved compared to yesterday. Oxygenation appears to have stabilized. We will continue to monitor, but if improves to 4 L nasal cannula, walking oximetry can be completed. 2. CKD stage IIIb Patient's creatinine appears to be at baseline. We will continue to monitor closely. Would avoid aggressive fluid resuscitation as this will likely not affect his renal function, but could increase his risk of requiring mechanical ventilation. Potential diuretic therapy in 24 to 48 hours if not improving. 3. Intractable nausea, vomiting and diarrhea Clinical suspicion that this is secondary to COVID-19. C. difficile has been negative. PPI is reasonable, especially given patient's Decadron requirements. 4. Advanced age/avoidance of primary care/history of smoker/BPH Complicates care, management, recovery and prognosis. We will discuss about discharge planning and the importance of primary care follow-up and COVID- 19 vaccination. Subjective Subjective Patient did okay overnight. Patient reports a dull achy sensation throughout his chest musculature. This is worsened with deep inhalation. Patient denies any nausea or vomiting, but is frustrated that his oxygen is not improving. Objective Data Objective Data Vital Signs: Vital Signs Temp Pulse Resp BP Pulse Ox 36.6 C 69 16 149/68 H 94 11/13/20 04:30 11/13/20 04:30 11/13/20 04:30 11/13/20 04:30 11/13/20 04:30 Oxygen Flow Rate (L/min) 6 Oxygen Delivery Method Nasal Cannula Weight: 83.7 kg Body Mass Index (BMI) 24.3 Intake & Output: Intake and Output for Last 24 Hours 11/11/20 11/12/20 11/13/20 23:59 23:59 23:59 Intake Total 1700 / 1700 630 / 730 200 / 200 Output Total 470 / 470 1075 / 1525 700 / 700 Balance 1230 / 1230 -445 / -795 -500 / -500 Lab / Micro Data Result Diagrams: 11/13/20 04:50 11/13/20 04:50 Labs: Laboratory Results - last 24 hr 11/13/20 11/13/20 04:50 04:50 WBC 15.9 H RBC 4.47 L Hgb 12.7 L Hct 39.2 L MCV 87.7 MCH 28.4 MCHC 32.4 RDW Std Deviation 41.4 RDW Coeff of Devyn 12.9 Plt Count 228 MPV 10.4 Immature Gran % (Auto) 1.800 H Neut % (Auto) 86.7 H Lymph % (Auto) 4.1 L [place] % (Auto) 6.7 Eos % (Auto) 0.4 Baso % (Auto) 0.3 Absolute Neuts (auto) 13.8 H Absolute Lymphs (auto) 0.65 L Nucleated RBC % 0 Sodium 137 Potassium 4.4 Chloride 105 Carbon Dioxide 25.0 Anion Gap 7 BUN 34 H Creatinine 1.44 H Estim Creat Clear Calc 51.63 Est GFR (MDRD) Af Amer 62 Est GFR (MDRD) Non-Af 51 L BUN/Creatinine Ratio 23.6 H Glucose 148 H Calcium 8.1 L Physical Exam Const alert, oriented x3, no apparent distress and average body habitus General Appearance: cooperative, comfortable and well developed; Negative for in distress HEENT normocephalic and head/scalp atraumatic; Negative for moist oral mucous mem branes Eyes PERRL, EOMs intact bilaterally and conjunctivae normal Neck full ROM Lymph Lymphatic: no lymphadenopathy noted Resp Effort and Inspection: able to speak in complete sentences and symmetric chest movement; Negative for actively coughing or uses accessory muscles Auscultation: diminished lung sounds diffuse; Negative for rales, rhonchi or wheezes Percussion: percussion normal Cardio S1 normal heart sound, S2 normal heart sound, no murmurs, no rub, no gallops and no JVD Rate: tachycardic Rhythm: abnormal rhythm irregularly irregular GI normal to inspection, nondistended, normoactive bowel sounds Narrative: Mild CVA tenderness noted Extremity no clubbing, cyanosis or edema Skin no rashes or lesions noted Neuro oriented x3 and CN's II-XII intact bilaterally Psych cooperative and affect normal Charges/Coding Visit Charges Inpatient E&M: 41395 Subs Hosp L2
[2020-11-13] MEDS: dexAMETHasone 4 MG Tablet 6 MG PO (08:23)
[2020-11-13] MEDS: Pantoprazole Sodium 40 MG Tablet PO (08:24)
[2020-11-13] MEDS: Finasteride 5 MG Tablet PO (08:24)
[2020-11-13] MEDS: Enoxaparin 80 MG/0.8 ML Syringe SC ×2 (08:24→20:33)
--- NOTE | 2020-11-13 11:32 | PN.HOSP_ITS ---
Subjective Subjective breathing better. less GI distress. Tolerating PO. Objective Data Objective Data Vital Signs: Vital Signs Temp Pulse Resp BP Pulse Ox 36.8 C 64 18 134/83 H 94 11/13/20 10:00 11/13/20 10:00 11/13/20 10:00 11/13/20 10:00 11/13/20 10:00 Oxygen Flow Rate (L/min) 3 Oxygen Delivery Method Nasal Cannula Weight: 83.7 kg Body Mass Index (BMI) 24.3 Intake & Output: Intake and Output for Last 24 Hours 11/11/20 11/12/20 11/13/20 23:59 23:59 23:59 Intake Total 1700 / 1700 630 / 730 200 / 200 Output Total 470 / 470 1075 / 1525 700 / 700 Balance 1230 / 1230 -445 / -795 -500 / -500 Lab / Micro Data Result Diagrams: 11/13/20 04:50 11/13/20 04:50 Labs: Laboratory Results - last 24 hr 11/13/20 11/13/20 04:50 04:50 WBC 15.9 H RBC 4.47 L Hgb 12.7 L Hct 39.2 L MCV 87.7 MCH 28.4 MCHC 32.4 RDW Std Deviation 41.4 RDW Coeff of Devyn 12.9 Plt Count 228 MPV 10.4 Immature Gran % (Auto) 1.800 H Neut % (Auto) 86.7 H Lymph % (Auto) 4.1 L [place] % (Auto) 6.7 Eos % (Auto) 0.4 Baso % (Auto) 0.3 Absolute Neuts (auto) 13.8 H Absolute Lymphs (auto) 0.65 L Nucleated RBC % 0 Sodium 137 Potassium 4.4 Chloride 105 Carbon Dioxide 25.0 Anion Gap 7 BUN 34 H Creatinine 1.44 H Estim Creat Clear Calc 51.63 Est GFR (MDRD) Af Amer 62 Est GFR (MDRD) Non-Af 51 L BUN/Creatinine Ratio 23.6 H Glucose 148 H Calcium 8.1 L Micro: Microbiology 11/11/20 11:45 Blood Culture (Wb) - Left Hand Blood Culture - Preliminary No growth in 48 hours. 11/11/20 11:15 Blood Culture (Wb) - Anticubital Left Blood Culture - Preliminary No growth in 48 hours. Physical Exam Const alert Eyes PERRL Resp normal respiratory effort and clear to auscultation bilaterally Cardio regular rate, regular rhythm, S1 normal heart sound and S2 normal heart sound GI normal to inspection, nondistended, normoactive bowel sounds, non-tender and non-distended Assessment & Plan Assessment/Plan (1) COVID-19: (2) Hypoxia: (3) D-dimer, elevated: (4) Chronic kidney disease: QUALIFIERS: Chronic kidney disease stage: stage 3 (moderate) Chronic kidney disease stage 3 subtype: stage 3b (GFR 30-44) Qualified Code(s): N18.32 - Chronic kidney disease, stage 3b PLAN: 1. Acute COVID-19 pneumonia * Start the patient on dexamethasone 6mg for a total of 10 days. Patient has an elevated D-dimer but given his CKD 3, would not have the patient undergo a CT angiogram at this time. VQ scan would be of low yield. So in the meantime, patient will be anticoagulated with enoxaparin. * Patient unsure if his symptoms began a week ago or 2 weeks ago. Will consult infectious disease for further recommendations and whether remdesivir would be an option for him. * Strongly recommended to he and his to get the vaccine once they are done with quarantine. They initially stated that they were apprehensive because it had not been studied enough in towards the end of the encounter the is asking if he can get the vaccination during this hospitalization. I told him that, at this time, we do not have that capability but that could be done as outpatient in the community. * Pulm consulted by [facility] for increased oxygen demands. 2. Acute hypoxic respiratory failure * Secondary to above but cannot rule out VTE at this time. * Wean oxygen as tolerated * Improving 3. CKD 3B * Complicates care. Avoid nephrotoxins. * Received 500 cc of fluid on the floor. 1 liter in ED. * Creatinine slightly better today * No additional IVF given COVID 19. 4. Intractable nausea and vomiting and diarrhea * Improved * Start PPI. As needed ondansetron * May be related with COVID-19 * Check C. difficile, H. pylori breath test given his history of H. pylori 5. VTE prophylaxis: Not indicated as patient is currently anticoagulated. 6. CODE STATUS: Discussed with the patient. Patient is full CODE STATUS at this time. 7. DC planning. Visit Charges Inpatient E&M: 56882 Subs Hosp L2
[2020-11-13 16:41] LABS: H.Pylori Breath Test Negative (Negative)
[2020-11-13] MEDS: 0.9% Saline Lock 10 ML Syringe IV (20:33)
[2020-11-14] VITALS (15 sets, daily range): BP systolic 149–180; BP diastolic 74–85; PULSE 56–70; RESP 16–24; TEMP 36.2–36.9; O2SAT 90–96
[2020-11-14] MEDS: 0.9% Saline Lock 10 ML Syringe IV (05:06)
[2020-11-14 05:22] LABS: Absolute Neutrophil Count 13.6 X10^3/uL (2.0-7.7); Basophil# 0.04 X10^3/uL; Basophil% 0.3 % (0-1); Hematocrit 39.5 % (40-54); Hemoglobin 12.8 g/dL (13.0-16.5); Lymphocyte % 3.8 % (19-41); Mean Corp Hgb Conc 32.4 g/dL (32-36); Mean Corpuscular Hgb 28.2 pg (27.0-32.0); Mean Platelet Vol. 10.6 fl (6.2-12.0); Monocyte# 1.03 X10^3/uL; Monocyte% 6.6 % (0-10); NRBC Flagged by Analyzer 0 % (0-5); Neutrophil # 13.62 X10^3/uL (2.7-7.7); Neutrophil % 86.8 % (47-70); POSITIVE DIFFERENTIAL YES; Platelet Count 233 K/mm3 (150-450); RBC Distribution Width CV 12.7 % (11.6-14.6); RBC Distribution Width SD 40.6 fl (35.1-43.9); Red Blood Count 4.54 M/mm3 (4.6-6.2); White Blood Count 15.7 K/mm3 (4.4-11.0)
[2020-11-14 05:30] LABS: Differential Indicated SCAN CRITERIA MET
[2020-11-14 05:41] LABS: ALB/GLOB Ratio 0.6 RATIO (0.9-2.4); AST(SGOT) 86 U/L (15-37); Alanine Aminotransfer ALT/SGPT 157 U/L (16-61); Albumin, Serum 2.3 g/dL (3.2-5.0); Alkaline Phosphatase 85 U/L (45-117); Anion Gap 9 (5-15); BUN 37 mg/dL (7-18); BUN/Creat Ratio 27.8 RATIO (10-20); Chloride 104 mmol/L (98-107); Creatinine, Serum 1.33 mg/dL (0.70-1.30); EST Glomerular Filtration Rate 56 mL/min (>60); Est Glom Filt Rate - Afr Amer 68 mL/min (>60); Globulin 3.8 g/dL (2.2-4.2); Glucose 130 mg/dL (74-106); Potassium 4.5 mmol/L (3.5-5.1); Protein, Total 6.1 g/dL (6.4-8.2); Sodium Level 135 mmol/L (136-145)
[2020-11-14 05:49] LABS: Differential Comment SCANNED
--- NOTE | 2020-11-14 07:44 | PCM.PN.INT ---
Assessment & Plan Assessment/Plan (1) COVID-19: (2) Hypoxia: (3) Chronic kidney disease: QUALIFIERS: Chronic kidney disease stage: stage 3 (moderate) Chronic kidney disease stage 3 subtype: stage 3b (GFR 30-44) Qualified Code(s): N18.32 - Chronic kidney disease, stage 3b PLAN: RECOMMENDATIONS: 1. Continue Decadron. Not a candidate for remdesivir given delayed presentation 2. Hold on aggressive fluid resuscitation. KVO IV fluids. Encourage p.o. intake 3. Wean oxygen as tolerated 4. Encourage incentive spirometer 5. Agree with empiric anticoagulation IMPRESSIONS: 1. Acute hypoxic respiratory insufficiency secondary to COVID-19 pneumonia Patient with bilateral infiltrates on chest x-ray. Unclear if patient has an element of COPD given previous smoking history. Patient appears to be on approximately day 14 of symptoms, so remdesivir would not be indicated. Agree with Decadron. Patient is open to intubation, but is not thrilled with BiPAP. Patient slightly improved compared to yesterday. Oxygenation appears to have stabilized. Likely check walking oximetry in the next 24 to 48 hours 2. CKD stage IIIb Patient's creatinine appears to be at baseline. We will continue to monitor closely. Would avoid aggressive fluid resuscitation as this will likely not affect his renal function, but could increase his risk of requiring mechanical ventilation. Potential diuretic therapy in 24 to 48 hours if not improving. 3. Intractable nausea, vomiting and diarrhea Appears to be improving. Clinical suspicion that this is secondary to COVID-19. C. difficile has been negative. PPI is reasonable, especially given patient's Decadron requirements. 4. Advanced age/avoidance of primary care/history of smoker/BPH/neck pain Complicates care, management, recovery and prognosis. We will discuss about discharge planning and the importance of primary care follow-up and COVID-19 vaccination. Neck pain this appears to be paraspinal. Monitor clinically for neurologic changes. No imaging at this time. Subjective Subjective Patient has been stable on nasal cannula oxygen. Patient continues to have a nonproductive cough. Patient continues to report a stiff neck. No associated neurologic changes have been reported. Objective Data Objective Data Vital Signs: Vital Signs Temp Pulse Resp BP Pulse Ox 36.6 C 61 20 H 154/85 H 96 11/14/20 05:09 11/14/20 05:09 11/14/20 05:09 11/14/20 05:09 11/14/20 07:03 Oxygen Flow Rate (L/min) 4 Oxygen Delivery Method Nasal Cannula Weight: 83.7 kg Body Mass Index (BMI) 24.3 Intake & Output: Intake and Output for Last 24 Hours 11/12/20 11/13/20 11/14/20 23:59 23:59 23:59 Intake Total 630 / 730 500 / 500 200 / 200 Output Total 1075 / 1525 1925 / 1925 575 / 575 Balance -445 / -795 -1425 / -1425 -375 / -375 Lab / Micro Data Result Diagrams: 11/14/20 05:00 11/14/20 05:00 Labs: Laboratory Results - last 24 hr 11/11/20 11/14/20 11/14/20 17:49 05:00 05:00 WBC 15.7 H RBC 4.54 L Hgb 12.8 L Hct 39.5 L MCV 87.0 MCH 28.2 MCHC 32.4 RDW Std Deviation 40.6 RDW Coeff of Devyn 12.7 Plt Count 233 MPV 10.6 Immature Gran % (Auto) 2.500 H Neut % (Auto) 86.8 H Lymph % (Auto) 3.8 L [place] % (Auto) 6.6 Eos % (Auto) 0.0 Baso % (Auto) 0.3 Absolute Neuts (auto) 13.6 H Absolute Lymphs (auto) 0.60 L Nucleated RBC % 0 Differential Comment SCANNED Sodium 135 L Potassium 4.5 Chloride 104 Carbon Dioxide 22.0 Anion Gap 9 BUN 37 H Creatinine 1.33 H Estim Creat Clear Calc 55.90 Est GFR (MDRD) Af Amer 68 Est GFR (MDRD) Non-Af 56 L BUN/Creatinine Ratio 27.8 H Glucose 130 H Calcium 8.0 L Total Bilirubin 0.50 AST 86 H ALT 157 H Alkaline Phosphatase 85 Total Protein 6.1 L Albumin 2.3 L Globulin 3.8 Albumin/Globulin Ratio 0.6 L H. pylori Breath Test Negative Micro: Microbiology 11/11/20 11:45 Blood Culture (Wb) - Left Hand Blood Culture - Preliminary No growth in 48 hours. 11/11/20 11:15 Blood Culture (Wb) - Anticubital Left Blood Culture - Preliminary No growth in 48 hours. Physical Exam Const alert, oriented x3, no apparent distress and average body habitus General Appearance: cooperative, comfortable and well developed; Negative for in distress HEENT normocephalic and head/scalp atraumatic; Negative for moist oral mucous membranes Eyes PERRL, EOMs intact bilaterally and conjunctivae normal Neck Neck Narrative: Paraspinal muscular tension noted. Pain reproducible with palpation. No pain over the spinous processes Lymph Lymphatic: no lymphadenopathy noted Resp Effort and Inspection: able to speak in complete sentences and symmetric chest movement; Negative for actively coughing or uses accessory muscles Auscultation: diminished lung sounds diffuse; Negative for rales, rhonchi or wheezes Percussion: percussion normal Cardio S1 normal heart sound, S2 normal heart sound, no murmurs, no rub, no gallops and no JVD Rate: tachycardic GI normal to inspection, nondistended, normoactive bowel sounds Extremity no clubbing, cyanosis or edema Skin no rashes or lesions noted Neuro oriented x3 and CN's II-XII intact bilaterally Psych cooperative and affect normal Charges/Coding Visit Charges Inpatient E&M: 37625 Subs Hosp L2
[2020-11-14] MEDS: Enoxaparin 80 MG/0.8 ML Syringe SC ×2 (09:56→21:38)
[2020-11-14] MEDS: dexAMETHasone 4 MG Tablet 6 MG PO (09:57)
[2020-11-14] MEDS: Pantoprazole Sodium 40 MG Tablet PO (09:57)
[2020-11-14] MEDS: Finasteride 5 MG Tablet PO (09:57)
--- NOTE | 2020-11-14 11:17 | CASEMGMT ---
RN CM placed green sheet on chart in anticipation of pt dc'ing over the weekend with O2 need.
--- NOTE | 2020-11-14 11:50 | CT_ITS ---
STUDY: CTA CHEST REASON FOR EXAM: Male, 75 years old. r/o PE RADIATION DOSAGE (If Supplied By Facility): CTDIvol = ( 11.50 ) mGy, DLP = ( 415.91 ) mGycm TECHNIQUE: The examination was performed with the intravenous administration of IV 100mL Isovue-370. Post-processing of the angiographic images was performed, with multiplanar reformation and 3D reconstruction. Individualized dose optimization techniques were used for this CT. COMPARISON: Comparison is made with prior chest radiograph dated 11/11/2020. FINDINGS: Normal enhancement of the main pulmonary artery and right and left pulmonary arteries. Normal enhancement of the bilateral peripheral pulmonary arteries. There is no demonstrated pulmonary embolism. Normal thoracic aorta and visualized great vessels. There is no demonstrated aortic dissection. Normal heart and pericardium. Calcified right hilar lymph nodes. Normal hilar regions. Normal visualized trachea and bronchi. The lungs are well expanded. Small bilateral pleural effusions. Diffuse emphysematous changes with bullous formation more prominent in the upper lobes. Increased interstitial markings in both lungs with evidence of bleb formation and areas of confluence more prominent in the lower lobes. At the lung bases likely more prominent on the right side superimposed on chronic scarring and bullous formation. 5.7 cm x 3.8 cm cystic structure in the upper pole of the right kidney. Suggestive of chronic interstitial fibrosis with superimposed atelectasis and/or early infiltrate at the right lung base. Normal chest wall structures. There are degenerative changes of thoracic spine. There is a 5.7 cm x 3.8 cm cystic structure in the upper pole of the right kidney. Nonobstructive intrarenal calculi in the upper pole of the left kidney. CT/CTA Chest W/WO Contrast IMPRESSION: Small bilateral pleural effusions with the Electronically Signed: Jaciel Alonzo MD at 12:51 EDT , Service support ,
--- NOTE | 2020-11-14 13:31 | PN.HOSP_ITS ---
Subjective Subjective breathing better. Objective Data Objective Data Vital Signs: Vital Signs Temp Pulse Resp BP Pulse Ox 36.9 C 70 24 H 170/75 H 90 11/14/20 12:00 11/14/20 12:00 11/14/20 12:00 11/14/20 12:00 11/14/20 12:00 Oxygen Flow Rate (L/min) 4 Oxygen Delivery Method Nasal Cannula Weight: 83.7 kg Body Mass Index (BMI) 24.3 Intake & Output: Intake and Output for Last 24 Hours 11/12/20 11/13/20 11/14/20 23:59 23:59 23:59 Intake Total 630 / 730 500 / 500 200 / 200 Output Total 1075 / 1525 1925 / 1925 975 / 975 Balance -445 / -795 -1425 / -1425 -775 / -775 Lab / Micro Data Attestation: I reviewed the patient's lab results. Result Diagrams: 11/14/20 05:00 11/14/20 05:00 Labs: Laboratory Results - last 24 hr 11/11/20 11/14/20 11/14/20 17:49 05:00 05:00 WBC 15.7 H RBC 4.54 L Hgb 12.8 L Hct 39.5 L MCV 87.0 MCH 28.2 MCHC 32.4 RDW Std Deviation 40.6 RDW Coeff of Devyn 12.7 Plt Count 233 MPV 10.6 Immature Gran % (Auto) 2.500 H Neut % (Auto) 86.8 H Lymph % (Auto) 3.8 L [place] % (Auto) 6.6 Eos % (Auto) 0.0 Baso % (Auto) 0.3 Absolute Neuts (auto) 13.6 H Absolute Lymphs (auto) 0.60 L Nucleated RBC % 0 Differential Comment SCANNED Sodium 135 L Potassium 4.5 Chloride 104 Carbon Dioxide 22.0 Anion Gap 9 BUN 37 H Creatinine 1.33 H Estim Creat Clear Calc 55.90 Est GFR (MDRD) Af Amer 68 Est GFR (MDRD) Non-Af 56 L BUN/Creatinine Ratio 27.8 H Glucose 130 H Calcium 8.0 L Total Bilirubin 0.50 AST 86 H ALT 157 H Alkaline Phosphatase 85 Total Protein 6.1 L Albumin 2.3 L Globulin 3.8 Albumin/Globulin Ratio 0.6 L H. pylori Breath Test Negative Micro: Microbiology 05/25/21 11:45 Blood Culture (Wb) - Left Hand Blood Culture - Preliminary No growth in 48 hours. 11/11/20 11:15 Blood Culture (Wb) - Anticubital Left Blood Culture - Preliminary No growth in 48 hours. Radiography Diagnostic Testing: Radiology Impression Chest CTA 11/14/20 11:50 IMPRESSION: Small bilateral pleural effusions with the Electronically Signed: Jaciel Alonzo MD at 12:51 EDT , Service support , Physical Exam Narrative pulse ox 90-92% on 2 liters Const alert HEENT Head and Scalp: normocephalic Resp normal respiratory effort and clear to auscultation bilaterally Cardio regular rate, regular rhythm, S1 normal heart sound and S2 normal heart sound GI normal to inspection, nondistended, normoactive bowel sounds, non-tender and non-distended Assessment & Plan Assessment/Plan (1) COVID-19: (2) Hypoxia: (3) D-dimer, elevated: (4) Chronic kidney disease: QUALIFIERS: Chronic kidney disease stage: stage 3 (moderate) Chronic kidney disease stage 3 subtype: stage 3b (GFR 30-44) Qualified Code(s): N18.32 - Chronic kidney disease, stage 3b PLAN: 1. Acute COVID-19 pneumonia * Start the patient on dexamethasone 6mg for a total of 10 days. Patient has an elevated D-dimer but given his CKD 3, would not have the patient undergo a CT angiogram at this time. VQ scan would be of low yield. So in the meantime, patient will be anticoagulated with enoxaparin. * Patient unsure if his symptoms began a week ago or 2 weeks ago. Will consult infectious disease for further recommendations and whether remdesivir would be an option for him. * Strongly recommended to he and his to get the vaccine once they are done with quarantine. They initially stated that they were apprehensive because it had not been studied enough in towards the end of the encounter the is asking if he can get the vaccination during this hospitalization. I told him that, at this time, we do not have that capability but that could be done as outpatient in the community. * Pulm consulted by [facility] [employer] for increased oxygen demands. 2. Acute hypoxic respiratory failure * Secondary to above but cannot rule out VTE at this time. * Wean oxygen as tolerated * Improving * consider CTA chest as creatinine stabilizes/improves 3. CKD 3B * Complicates care. Avoid nephrotoxins. * Received 500 cc of fluid on the floor. 1 liter in ED. * Creatinine slightly better today * No additional IVF given COVID 19. * TASHIA resolved 4. Intractable nausea and vomiting and diarrhea * Improved * Start PPI. As needed ondansetron * May be related with COVID-19 * Check C. difficile, H. pylori breath test given his history of H. pylori 5. VTE prophylaxis: Not indicated as patient is currently anticoagulated. 6. CODE STATUS: Discussed with the patient. Patient is full CODE STATUS at this time. 7. DC planning hopefully in next 1-2 days Visit Charges Inpatient E&M: 37463 Subs Hosp L2
[2020-11-14] MEDS: Acetaminophen 325 MG Tablet 650 MG PO (21:52)
[2020-11-15] VITALS (7 sets, daily range): BP systolic 143–166; BP diastolic 70–97; PULSE 56–63; RESP 18–20; TEMP 36.1–37.1; O2SAT 87–96
[2020-11-15 05:12] LABS: Absolute Lymphocyte Count 0.89 X10^3/uL (0.83-4.51); Absolute Neutrophil Count 10.3 X10^3/uL (2.0-7.7); Basophil# 0.03 X10^3/uL; Basophil% 0.2 % (0-1); Eosinophil# 0.01 X10^3/uL; Eosinophils% 0.1 % (0-5); Hematocrit 43.6 % (40-54); Hemoglobin 14.1 g/dL (13.0-16.5); Lymphocyte # 0.89 X10^3/ul (0.83-4.51); Lymphocyte % 7.2 % (19-41); Mean Corp Hgb Conc 32.3 g/dL (32-36); Mean Corpuscular Hgb 28.3 pg (27.0-32.0); Mean Corpuscular Volume 87.6 fL (80-94); Mean Platelet Vol. 10.2 fl (6.2-12.0); Monocyte# 0.84 X10^3/uL; Monocyte% 6.8 % (0-10); NRBC Flagged by Analyzer 0 % (0-5); Neutrophil # 10.32 X10^3/uL (2.7-7.7); Neutrophil % 83.6 % (47-70); Platelet Count 298 K/mm3 (150-450); RBC Distribution Width CV 12.8 % (11.6-14.6); RBC Distribution Width SD 40.8 fl (35.1-43.9); Red Blood Count 4.98 M/mm3 (4.6-6.2); White Blood Count 12.4 K/mm3 (4.4-11.0)
[2020-11-15 05:30] LABS: ALB/GLOB Ratio 0.7 RATIO (0.9-2.4); AST(SGOT) 63 U/L (15-37); Alanine Aminotransfer ALT/SGPT 154 U/L (16-61); Albumin, Serum 2.7 g/dL (3.2-5.0); Alkaline Phosphatase 94 U/L (45-117); Anion Gap 7 (5-15); BUN 36 mg/dL (7-18); BUN/Creat Ratio 24.5 RATIO (10-20); Calcium,Total 8.6 mg/dL (8.5-10.1); Chloride 102 mmol/L (98-107); Creatinine, Serum 1.47 mg/dL (0.70-1.30); EST Glomerular Filtration Rate 50 mL/min (>60); Est Glom Filt Rate - Afr Amer 60 mL/min (>60); Estimated Creatinine Clearance 50.58 ml/min; Globulin 4.1 g/dL (2.2-4.2); Glucose 124 mg/dL (74-106); Potassium 4.7 mmol/L (3.5-5.1); Protein, Total 6.8 g/dL (6.4-8.2); Sodium Level 136 mmol/L (136-145)
--- NOTE | 2020-11-15 06:15 | PN.CC_ITS ---
Assessment & Plan Assessment/Plan (1) Hypoxia: (2) COVID-19: PLAN: RECOMMENDATIONS: 1. Continue Decadron to complete 10-day treatment course. 2. Wean supplemental oxygen to maintain saturations at or above 90%. 3. Encourage incentive spirometer use and mobilize patient as tolerated. 4. Continue Lovenox as ordered. IMPRESSIONS: 1. Acute hypoxemic respiratory failure secondary to COVID-19 pneumonia The patient did present to the hospital with bilateral infiltrates on chest x- ray. History of obstructive lung disease is unclear given prior smoking history. The patient was outside of the window for remdesivir administration. Therefore, we will plan to continue Decadron to complete 10 days of treatment. Oxygenation status appears to be slowly improving. Continue to wean oxygen to maintain saturations at or above 90%. Encourage incentive spirometer use and mobilize patient as tolerated. 2. Chronic kidney disease/advanced age/BPH Complicates care, management, recovery and prognosis. Patient to establish relationship with primary care provider upon discharge from the hospital. This note was generated with [employer] dictation software. It may contain incorrect words, spelling, and punctuation that were not noted in checking the note before signing. Subjective Subjective The patient was seen and examined at the bedside this morning. Events from the last 24 hours have been reviewed. The patient is currently afebrile, hemodynamically stable and maintaining appropriate oxygen saturations on 5 L/min via nasal cannula. The patient is currently documented to be overall net -1.5 L for the hospital admission. The patient remains on Decadron. Objective Data Objective Data The patient's most recent lab work, culture data and imaging studies have all been personally reviewed. Vital Signs: Vital Signs Temp Pulse Resp BP Pulse Ox 97.7 F L 58 L 18 166/70 H 96 11/15/20 06:09 11/15/20 06:09 11/15/20 06:09 11/15/20 06:09 11/15/20 06:09 Oxygen Flow Rate (L/min) 5 Oxygen Delivery Method Nasal Cannula Weight: 184 lb 8.43 oz Body Mass Index (BMI) 24.3 Intake & Output: Intake and Output for Last 24 Hours 11/13/20 11/14/20 11/15/20 23:59 23:59 23:59 Intake Total 500 / 500 1270 / 1270 200 / 200 Output Total 1925 / 1925 2375 / 2375 Balance -1425 / -1425 -1105 / -1105 200 / 200 Lab / Micro Data Attestation: I reviewed the patient's lab results. Result Diagrams: 11/15/20 05:03 11/15/20 05:03 Labs: Laboratory Results - last 24 hr 11/15/20 11/15/20 05:03 05:03 WBC 12.4 H RBC 4.98 Hgb 14.1 Hct 43.6 MCV 87.6 MCH 28.3 MCHC 32.3 RDW Std Deviation 40.8 RDW Coeff of Devyn 12.8 Plt Count 298 MPV 10.2 Immature Gran % (Auto) 2.100 H Neut % (Auto) 83.6 H Lymph % (Auto) 7.2 L Kleberg % (Auto) 6.8 Eos % (Auto) 0.1 Baso % (Auto) 0.2 Absolute Neuts (auto) 10.3 H Absolute Lymphs (auto) 0.89 Nucleated RBC % 0 Sodium 136 Potassium 4.7 Chloride 102 Carbon Dioxide 27.0 Anion Gap 7 BUN 36 H Creatinine 1.47 H Estim Creat Clear Calc 50.58 Est GFR (MDRD) Af Amer 60 Est GFR (MDRD) Non-Af 50 L BUN/Creatinine Ratio 24.5 H Glucose 124 H Calcium 8.6 Total Bilirubin 0.50 AST 63 H ALT 154 H Alkaline Phosphatase 94 Total Protein 6.8 Albumin 2.7 L Globulin 4.1 Albumin/Globulin Ratio 0.7 L Micro: Microbiology 11/11/20 11:45 Blood Culture (Wb) - Left Hand Blood Culture - Preliminary No growth in 48 hours. 11/11/20 11:15 Blood Culture (Wb) - Anticubital Left Blood Culture - Preliminary No growth in 48 hours. Radiography Diagnostic Testing: Radiology Impression Chest CTA 11/14/20 11:50 IMPRESSION: Small bilateral pleural effusions with the Electronically Signed: Jaciel Alonzo MD at 12:51 EDT , Service support , Physical Exam Const alert and no apparent distress General Appearance: cooperative HEENT normocephalic, head/scalp atraumatic and moist oral mucous membranes Eyes PERRL and EOMs intact bilaterally Neck supple General: trachea midline Resp normal respiratory effort Auscultation: diminished lung sounds; Negative for rales, rhonchi or wheezes Cardio regular rate and regular rhythm GI normal to inspection, nondistended, normoactive bowel sounds Extremity no clubbing, cyanosis or edema Skin no rashes or lesions noted Neuro oriented x3 and CN's II-XII intact bilaterally Psych cooperative and affect normal Charges/Coding Visit Charges Inpatient E&M: 61225 Subs Hosp L2
[2020-11-15] MEDS: Enoxaparin 80 MG/0.8 ML Syringe SC (09:44)
[2020-11-15] MEDS: Finasteride 5 MG Tablet PO (09:44)
[2020-11-15] MEDS: dexAMETHasone 4 MG Tablet 6 MG PO (09:44)
[2020-11-15] MEDS: Pantoprazole Sodium 40 MG Tablet PO (09:44)
--- NOTE | 2020-11-15 12:21 | PN.HOSP_ITS ---
Subjective Subjective Planing of epistaxis occurring from either nares. Objective Data Objective Data Vital Signs: Vital Signs Temp Pulse Resp BP Pulse Ox 37.1 C 61 18 165/84 H 94 11/15/20 10:00 11/15/20 10:00 11/15/20 10:00 11/15/20 10:00 11/15/20 11:08 Oxygen Flow Rate (L/min) [ 5 AMBULATING with Oxygen #3] Oxygen Flow Rate (L/min) [ 4 AMBULATING with Oxygen #2] Oxygen Flow Rate (L/min) [ 3 AMBULATING with Oxygen #1] Oxygen Flow Rate (L/min) [At 0 REST on Room Air] Oxygen Flow Rate (L/min) [At 3 REST with Oxygen] Oxygen Flow Rate (L/min) 4 Oxygen Delivery Method Nasal Cannula Weight: 83.7 kg Body Mass Index (BMI) 24.3 Intake & Output: Intake and Output for Last 24 Hours 11/13/20 11/14/20 11/15/20 23:59 23:59 23:59 Intake Total 500 / 500 1270 / 1270 200 / 200 Output Total 1925 / 1925 2375 / 2375 Balance -1425 / -1425 -1105 / -1105 200 / 200 Lab / Micro Data Result Diagrams: 11/15/20 05:03 11/15/20 05:03 Labs: Laboratory Results - last 24 hr 11/15/20 11/15/20 05:03 05:03 WBC 12.4 H RBC 4.98 Hgb 14.1 Hct 43.6 MCV 87.6 MCH 28.3 MCHC 32.3 RDW Std Deviation 40.8 RDW Coeff of Devyn 12.8 Plt Count 298 MPV 10.2 Immature Gran % (Auto) 2.100 H Neut % (Auto) 83.6 H Lymph % (Auto) 7.2 L Miller % (Auto) 6.8 Eos % (Auto) 0.1 Baso % (Auto) 0.2 Absolute Neuts (auto) 10.3 H Absolute Lymphs (auto) 0.89 Nucleated RBC % 0 Sodium 136 Potassium 4.7 Chloride 102 Carbon Dioxide 27.0 Anion Gap 7 BUN 36 H Creatinine 1.47 H Estim Creat Clear Calc 50.58 Est GFR (MDRD) Af Amer 60 Est GFR (MDRD) Non-Af 50 L BUN/Creatinine Ratio 24.5 H Glucose 124 H Calcium 8.6 Total Bilirubin 0.50 AST 63 H ALT 154 H Alkaline Phosphatase 94 Total Protein 6.8 Albumin 2.7 L Globulin 4.1 Albumin/Globulin Ratio 0.7 L Micro: Microbiology 11/11/20 11:45 Blood Culture (Wb) - Left Hand Blood Culture - Preliminary No growth in 48 hours. 11/11/20 11:15 Blood Culture (Wb) - Anticubital Left Blood Culture - Preliminary No growth in 48 hours. Radiography Diagnostic Testing: Radiology Impression Chest CTA 11/14/20 11:50 IMPRESSION: Small bilateral pleural effusions with the Electronically Signed: Jaciel Alonzo MD at 12:51 EDT , Service support , Physical Exam Narrative pulse ox 90-92% on 2 liters Const alert Constitutional Narrative: Listless. General Appearance: cooperative Exam Limitations: no limitations HEENT normocephalic Eyes PERRL Eyes Narrative: No scleral icterus Neck no lymphadenopathy Resp normal respiratory effort and clear to auscultation bilaterally Resp Narrative: Bibasilar crackles. Cardio regular rate, regular rhythm, S1 normal heart sound and S2 normal heart sound GI normal to inspection, nondistended, normoactive bowel sounds, non-tender and non-distended Extremity normal to inspection Neuro Sensorium / Orientation: awake and alert Psych affect normal Assessment & Plan Assessment/Plan (1) COVID-19: (2) Hypoxia: (3) D-dimer, elevated: (4) Chronic kidney disease: QUALIFIERS: Chronic kidney disease stage: stage 3 (moderate) Chronic kidney disease stage 3 subtype: stage 3b (GFR 30-44) Qualified Code(s): N18.32 - Chronic kidney disease, stage 3b PLAN: 1. Acute COVID-19 pneumonia * Start the patient on dexamethasone 6mg for a total of 10 days. * CTA negative for PE did show some small pleural effusions. * Patient unsure if his symptoms began a week ago or 2 weeks ago. Will consult infectious disease for further recommendations and whether remdesivir would be an option for him. * Strongly recommended to he and his to get the vaccine once they are done with quarantine. They initially stated that they were apprehensive because it had not been studied enough in towards the end of the encounter the is asking if he can get the vaccination during this hospitalization. I told him that, at this time, we do not have that capability but that could be done as outpatient in the community. * Pulm consulted by [facility] [employer] CHIEF for increased oxygen demands. * Oxygen demands have been variable range 3 to 5 L. Complicated by epistaxis the patient has been undergoing. Since he CTA of the chest is not showing pulmonary embolism decrease his enoxaparin to 40 mg subcu daily and monitor. 2. Acute hypoxic respiratory failure * Secondary to above but cannot rule out VTE at this time. * Wean oxygen as tolerated * Improving * consider CTA chest as creatinine stabilizes/improves 3. CKD 3B * Complicates care. Avoid nephrotoxins. * Received 500 cc of fluid on the floor. 1 liter in ED. * Creatinine slightly better today 4. Intractable nausea and vomiting and diarrhea * Improved * Start PPI. As needed ondansetron * May be related with COVID-19 * H. pylori breath test negative 5. VTE prophylaxis: Not indicated as patient is currently anticoagulated. 6. CODE STATUS: Discussed with the patient. Patient is full CODE STATUS at this time. 7. DC planning hopefully in next 1-2 days Visit Charges Inpatient E&M: 29593 Subs Hosp L2
[2020-11-16 03:36] VITALS: BP 151/90; PULSE 60; RESP 17; TEMP 36.4; O2SAT 92
[2020-11-16] MEDS: 0.9% Saline Lock 10 ML Syringe IV (03:38)
[2020-11-16] MEDS: Sodium Chloride 0.65% 1 SPRAY SPRAY.BTL 2 SPRAY NASAL (03:39)
--- NOTE | 2020-11-16 05:43 | PCM.PN.INT ---
Assessment & Plan Assessment/Plan (1) COVID-19: (2) Hypoxia: PLAN: RECOMMENDATIONS: 1. Continue Decadron to complete 10-day treatment course. 2. Wean supplemental oxygen to maintain saturations at or above 90%. 3. Encourage incentive spirometer use and mobilize patient as tolerated. 4. Continue Lovenox as ordered. 5. If the patient is able to ambulate and maintain appropriate oxygen saturations on 6 L/min or less, he can be discharged home to complete his Decadron treatment course. Will sign off at this time. Please call with any additional questions. IMPRESSIONS: 1. Acute hypoxemic respiratory failure secondary to COVID-19 pneumonia The patient did present to the hospital with bilateral infiltrates on chest x-ray. History of obstructive lung disease is unclear given prior smoking history. The patient was outside of the window for remdesivir administration. Therefore, we will plan to continue Decadron to complete 10 days of treatment. Oxygenation status appears to be slowly improving. Continue to wean oxygen to maintain saturations at or above 90%. Encourage incentive spirometer use and mobilize patient as tolerated. 2. Chronic kidney disease/advanced age/BPH Complicates care, management, recovery and prognosis. Patient to establish relationship with primary care provider upon discharge from the hospital. This note was generated with [employer] dictation software. It may contain incorrect words, spelling, and punctuation that were not noted in checking the note before signing. Subjective Subjective The patient was seen and examined at the bedside this morning. Events from the last 24 hours have been reviewed. The patient is currently afebrile, hemodynamically stable and maintaining appropriate oxygen saturations on 2 L/min via nasal cannula. The patient remains on Decadron. Objective Data Objective Data The patient's most recent lab work, culture data and imaging studies have all been personally reviewed. Vital Signs: Vital Signs Temp Pulse Resp BP Pulse Ox 97.6 F L 60 17 151/90 H 92 11/16/20 03:36 11/16/20 03:36 11/16/20 03:36 11/16/20 03:36 11/16/20 03:36 Oxygen Flow Rate (L/min) [ 5 AMBULATING with Oxygen #3] Oxygen Flow Rate (L/min) [ 4 AMBULATING with Oxygen #2] Oxygen Flow Rate (L/min) [ 3 AMBULATING with Oxygen #1] Oxygen Flow Rate (L/min) [At 0 REST on Room Air] Oxygen Flow Rate (L/min) [At 3 REST with Oxygen] Oxygen Flow Rate (L/min) 2 Oxygen Delivery Method Nasal Cannula Weight: 184 lb 8.43 oz Body Mass Index (BMI) 24.3 Intake & Output: Intake and Output for Last 24 Hours 11/14/20 11/15/20 11/16/20 23:59 23:59 23:59 Intake Total 1270 / 1270 700 / 700 Output Total 2375 / 2375 400 / 400 Balance -1105 / -1105 300 / 300 Lab / Micro Data Attestation: I reviewed the patient's lab results. Result Diagrams: 11/15/20 05:03 11/15/20 05:03 Micro: Microbiology 11/11/20 11:45 Blood Culture (Wb) - Left Hand Blood Culture - Preliminary No growth in 48 hours. 11/11/20 11:15 Blood Culture (Wb) - Anticubital Left Blood Culture - Preliminary No growth in 48 hours. Physical Exam Const alert and no apparent distress Constitutional Narrative: Sitting in bedside recliner. General Appearance: cooperative HEENT normocephalic, head/scalp atraumatic and moist oral mucous membranes Eyes PERRL and EOMs intact bilaterally Neck supple General: trachea midline Resp normal respiratory effort Auscultation: diminished lung sounds; Negative for rales, rhonchi or wheezes Cardio regular rate and regular rhythm GI normal to inspection, nondistended, normoactive bowel sounds Extremity no clubbing, cyanosis or edema Skin no rashes or lesions noted Neuro oriented x3 and CN's II-XII intact bilaterally Psych cooperative and affect normal Charges/Coding Visit Charges Inpatient E&M: 87103 Subs Hosp L2
[2020-11-16 07:28] VITALS: O2SAT 92
[2020-11-16 09:29] VITALS: BP 171/86; PULSE 61; RESP 21; TEMP 36.6; O2SAT 93
[2020-11-16] MEDS: dexAMETHasone 4 MG Tablet 6 MG PO (09:35)
[2020-11-16] MEDS: Finasteride 5 MG Tablet PO (09:36)
[2020-11-16] MEDS: Pantoprazole Sodium 40 MG Tablet PO (09:36)
[2020-11-16] MEDS: Enoxaparin 40 MG/0.4 ML Syringe SC (09:36)
[2020-11-16 09:44] VITALS: O2SAT 86; O2SAT 94
--- NOTE | 2020-11-16 10:13 | NURSING ---
0945- Attempted to wean patient to room air. Pt tolerated well while sitting in the chair. O2 sats mid to low 90's. Had patient ambulate in room on room air. Pt O2 saturation after ambulation was 86. pt recovered to mid 90's while sitting.
--- NOTE | 2020-11-16 11:23 | PCM.DC ---
Discharge Instructions Diet Discharge Diet: No restrictions Activity Discharge Activity: - (slowly ease back into your normal routine.) Dressing / Incision Call your doctor if you observe: Fever of 101 or Higher and Shortness of breath (worsening) Follow Up Care Test Results: Test results from this visit will be discussed in further detail at your follow-up appointment, if applicable. Discharge Plan Admission Admit Date/Time: 11/11/20 13:20 Attending Provider: Frank Interiano Primary Care Provider: Adriana Boo Consulting Providers: Rayo Langston ; Nehemias Jiang ; Jonatan Juarez ; Ella Nash ASSISTANT CHIEF OF POLICE Discharge Orders/Prescriptions Prescriptions: New acetaminophen [Tylenol] 325 mg Tablet 650 mg PO Q6H PRN PRN (Reason: Pain Score 1-10/Temp > 100.7 F) Qty: 0 RF: 0 dexamethasone 4 mg Tablet 6 mg PO DAILY 4 Days Qty: 6 RF: 0 pantoprazole 40 mg Tablet,Delayed Release (Dr/Ec) 40 mg PO DAILY Qty: 30 RF: 0 Continued finasteride 5 mg tablet 5 mg PO DAILY RF: 0 Referrals / Follow Up: Adriana Boo MD [Primary Care Provider] - In 1 Week Disposition Disposition (needs filled in before D/C Order can be placed): Home, self care
--- NOTE | 2020-11-16 11:27 | PCM.DC.SUM ---
Providers Date of Admission: 11/11/20 Primary Care Physician: Dr. Adriana Boo MD Consultations 11/11/20 13:22 Consult: Infectious Disease Routine Consulting Provider: Rayo Langston Reason for Consult: Covid-19 EMERGENT Consult: No Notified: Yes Date Notified:: 11/11/20 Time Notified: 13:10 Method of Notification: Text 11/12/20 01:24 Consult: Long Term Care Administrator / Pulmonary Medicine Routine Consulting Provider: Pulmonary Medicine ashly [place] Reason for Consult: covid, increasing oxygen needs EMERGENT Consult: No Notified: Yes Date Notified:: 11/12/20 Time Notified: 01:24 Method of Notification: Text Reason For Visit: COVID, HYPOXIA Diagnosis Discharge Diagnosis (1) COVID-19: Status: Acute Code(s): U07.1 - COVID-19 (2) Hypoxia: Status: Acute Code(s): R09.02 - Hypoxemia Medications at Discharge Home Medications finasteride 5 mg PO DAILY 11/09/20 acetaminophen [Tylenol] 650 mg PO Q6H PRN PRN #0 tab 11/16/20 dexamethasone 6 mg PO DAILY 4 Days #6 tab 11/16/20 pantoprazole 40 mg PO DAILY #30 tab 11/16/20 Hospital Course Operations None Procedures None Summary of Care Provided Minutes Spent on Discharge: 32 Hospital Course: 35-year-old white male presents with increasing shortness of breath. Patient does not have infiltrates consistent with Covid and did have the positive Covid test. Patient symptoms began roughly 2 weeks prior to arrival GI symptoms at that time. Likely time of onset was then. Patient was started on dexamethasone during this hospitalization patient was seen in consultation by infectious disease as well as pulmonology. Patient did have a CAT scan that did not show any pulmonary embolism did show some pleural effusions. Patient did also have some acute kidney injury that is subsequently resolved. Patient did have an IMPROVE VTE score of 1% and therefore not wire VT prophylaxis upon discharge. Patient was ambulated in his room today and his pulse ox dropped down to 89%. He was not have any dyspnea on exertion during this encounter. Patient will be discharged home without oxygen. Patient advised to ease back into his routine slowly. Additionally since his onset of symptoms was 3 weeks ago, patient has completed his his quarantine. Patient strongly advised to get the vaccine as to help protect him from some the variance that may be out there. Physical Exam Const alert and oriented x3 General Appearance: cooperative and comfortable Neuro Neuro Narrative: normal gait ABG / Lab / Microbiology Data Attestation: I reviewed the patient's lab results. Result Diagrams: 11/15/20 05:03 11/15/20 05:03 Microbiology: Microbiology 11/11/20 11:45 Blood Culture (Wb) - Left Hand Blood Culture - Preliminary No growth in 48 hours. 11/11/20 11:15 Blood Culture (Wb) - Anticubital Left Blood Culture - Preliminary No growth in 48 hours. D/C Instructions Discharge Diet: No restrictions Discharge Activity: - (slowly ease back into your normal routine.) Call your doctor if you observe: Fever of 101 or Higher and Shortness of breath (worsening) Meaningful Use Info Meaningful Use Diagnoses (Choose all that apply): None applicable Discharge Plan Admission Admit Date/Time: 11/11/20 13:20 Attending Provider: Frank Interiano Primary Care Provider: Adriana Boo Consulting Providers: Rayo Langston ; Nehemias Jiang ; Jonatan Juarez ; Ella Nash COSTUME DESIGN TEACHER Discharge Orders/Prescriptions Prescriptions: New acetaminophen [Tylenol] 325 mg Tablet 650 mg PO Q6H PRN PRN (Reason: Pain Score 1-10/Temp > 100.7 F) Qty: 0 RF: 0 dexamethasone 4 mg Tablet 6 mg PO DAILY 4 Days Qty: 6 RF: 0 pantoprazole 40 mg Tablet,Delayed Release (Dr/Ec) 40 mg PO DAILY Qty: 30 RF: 0 Continued finasteride 5 mg tablet 5 mg PO DAILY RF: 0 Referrals / Follow Up: Adriana Boo MD [Primary Care Provider] - In 1 Week Disposition Disposition (needs filled in before D/C Order can be placed): Home, self care Visit Charges Inpatient E&M: 49658 Disch Hosp
[2020-11-16 13:26] VITALS: BP 159/76; PULSE 67; RESP 19; TEMP 36.6; O2SAT 92
--- NOTE | 2020-11-18 12:29 | CASEMGMT ---
[facility] Discharge Follow Up Phone Call: ANDRÉS: Ang Strata: 3 Call Date: 11.18.20 Discharge Date: 11.16.20 Time of Call:1226 Duration:3 min Admitting Dx: Covid 19 [place] completed follow up phone call after recent hospitalization. Pt states he is doing well. States his pulse ox is 95%. 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 States his appetite is very good. Pt was going to make an appt with his PCP but he states he may want to change PCP's. Pt is unsure of who he will change to. Encouraged pt to make a follow up appt with or try to get a new PCP rather quickly so he could be seen for follow up. Pt states he will do so. Pt denied further questions or concerns and thanked this CM for the call.
== END 2020-11-16 13:25 | disposition home or self-care (01) | DRG 177 ==
LOC: ED 11:29 → ICU 13:10
PROVIDERS: Internal Medicine Critical Care Medicine; Emergency Provider Emergency Medicine; PCP Internal Medicine
DX: U07.1 COVID-19 (principal); J12.82 Pneumonia due to coronavirus disease 2019; J96.01 Acute respiratory failure with hypoxia; E43 Unspecified severe protein-calorie malnutrition; I45.2 Bifascicular block; N17.9 Acute kidney failure, unspecified; N18.32 Chronic kidney disease, stage 3b; E78.00 Pure hypercholesterolemia, unspecified; Z87.891 Personal history of nicotine dependence; N40.0 Benign prostatic hyperplasia without lower urinary tract symptoms; J34.2 Deviated nasal septum; R11.2 Nausea with vomiting, unspecified; R19.7 Diarrhea, unspecified; R74.01 Elevation of levels of liver transaminase levels; Z68.24 Body mass index [BMI] 24.0-24.9, adult
CPT/HCPCS: 71045; 71275; 80048; 80053; 83013; 83605; 83690; 83735; 84100; 84145; 85025; 85379; 87040; 93005; 96360; 96361; 99283; 99284; J7030; Q9967; A4216; J2405